=== PATIENT | male | born 1950 | race Caucasian/White ===

== ENCOUNTER 2016-12-26 06:25 | Day surgery (SDC) | payer MEDICARE ==
[2016-12-26] MEDS ORDERED: ceFAZolin 2 GM/50 ML 50 ML IV ONE (06:27)
[2016-12-26] MEDS ORDERED: LACTATED RINGERS 1,000 ML IV ONE ×2 (06:31→08:50)
[2016-12-26] MEDS ORDERED: PROPOFOL 200 MG/20 ML VIAL IVP ONE (08:20)
[2016-12-26] MEDS ORDERED: hydrALAZINE INJ 20 MG/ML VIAL IVP ONE (08:20)
[2016-12-26] MEDS ORDERED: MIDAZOLAM 2 MG/2 ML VIAL IVP ONE (08:20)
[2016-12-26] MEDS ORDERED: GLYCOPYRROLATE 1 MG/5 ML VIAL IVP ONE (08:20)
[2016-12-26] MEDS ORDERED: ePHEDrine 50 MG/ML VIAL IVP ONE (08:20)
[2016-12-26] MEDS ORDERED: LIDOCAINE-MPF 2% 5 ML VIAL IM ONE (08:20)
[2016-12-26] MEDS ORDERED: SUCCINYLCHOLINE 200 MG/10 ML VIAL IVP ONE (08:20)
[2016-12-26] MEDS ORDERED: NEOSTIGMINE 1 MG/1 ML 10 ML MDV IVP ONE (08:20)
[2016-12-26] MEDS ORDERED: fentaNYL 100 MCG/2 ML VIAL IVP ONE (08:20)
[2016-12-26] MEDS ORDERED: ROCURONIUM 50 MG/5 ML VIAL IVP ONE (08:20)
[2016-12-26] MEDS ORDERED: BUPIVACAINE 0.25%-EPI 1:200000 PF 30 ML VIAL SUBQ ONE ×2 (08:51)
[2016-12-26] MEDS ORDERED: LIDOCAINE 1% 50 ML MDV SUBQ ONE ×2 (08:51)
[2016-12-26] MEDS ORDERED: ACETAMINOPHEN 1,000 MG/100 ML 100 ML IV ONE (09:24)
[2016-12-26] MEDS ORDERED: oxyCOD/ACETAMIN 5 MG/325 MG TABLET PO ONE (10:23)
== END 2016-12-26 06:26 | disposition home or self-care (01) ==
PROC: 06BY0ZC Excision of Hemorrhoidal Plexus, Open Approach (ICD-10-PCS; principal; 2016-12-26 07:30)
PROC: 0DBH8ZX Excision of Cecum, Via Natural or Artificial Opening Endoscopic, Diagnostic (ICD-10-PCS; 2016-12-26 07:30)
DX: Z12.11 Encounter for screening for malignant neoplasm of colon (principal); D12.0 Benign neoplasm of cecum; K64.8 Other hemorrhoids; K64.5 Perianal venous thrombosis; G20 Parkinson's disease; K59.09 Other constipation; Z79.01 Long term (current) use of anticoagulants; M19.90 Unspecified osteoarthritis, unspecified site
CPT/HCPCS: 45380; 46260; A9270; J0131; J0690; J7120

== ENCOUNTER 2017-05-30 07:59 | Outpatient (CLI) | payer MEDICARE | END 2017-05-30 08:00 | disposition critical access hospital (66) | LOC: EMS 07:59 | PROVIDERS: ATTEND Surgery | DX: R46.89 Other symptoms and signs involving appearance and behavior (principal) | CPT/HCPCS: A0425; A0429 ==

== ENCOUNTER 2017-05-30 08:11 | Inpatient (IN) | payer MEDICARE ==
--- NOTE | 2017-05-30 08:24 | ED Physician Documentation ---
History of Present Illness - Stated complaint Stated Complaint: TIA - Chief complaint Chief Complaint: General - History obtained from History obtained from: Patient, Family, EMS - History of Present Illness Timing: Today Pain level max: 0 Pain level now: 0 Improved by: nothing Worsened by: nothing - Additonal information Additional information: Patient is a 67-year-old gentleman, with a history of parkinsons, who was at home this morning at the breakfast table with his and he became "suarez, blue around the lips and could not speak". This episode lasted approximately 2- 5 minutes. Resolved spontaneously. Now feels normal. Has a history of factor V Leiden deficiency with pulmonary emboli in the past. Had a similar episode in [place] 1 month ago, but was not seen by a physician at that time. States has been taking his warfarin at home. No headache. No recent illness. Review of Systems Ten Systems: 10 systems reviewed and negative Constitutional: denies: Fever, Chills Eyes: denies: Decreased vision Ears: denies: Ear pain Nose: denies: Rhinorrhea / runny nose, Congestion Throat: denies: Sore throat Cardiac: denies: Chest pain / pressure Respiratory: denies: Cough, Wheezing GI: denies: Nausea, Vomiting, Diarrhea : denies: Dysuria Skin: denies: Rash PD PAST MEDICAL HISTORY - Past Medical History Past Medical History: Yes Cardiovascular: Deep vein thrombosis, Pulmonary embolism Respiratory: None Neuro: Parkinson's Endocrine/Autoimmune: None GI: Chronic constipation, Hemorrhoids : Benign prostate hypertrophy HEENT: Chronic vision loss Psych: None Musculoskeletal: Osteoarthritis, Chronic back pain Derm: None - Past Surgical History Past Surgical History: No General: Colonoscopy Ortho: Spine surgery - Present Medications Home Medications: Ambulatory Orders Medication Instructions Recorded Confirmed Clonazepam 1 mg PO QPM PRN 04/15/13 05/30/17 Warfarin Sodium [Coumadin] 2.5 mg PO DAILY 04/15/13 05/30/17 Carbidopa/Levodopa 25/250 [Sinemet 1 each PO 5XD 10/01/13 05/30/17 25 mg/250 mg] Cyclobenzaprine [Flexeril] 10 mg PO TID PRN #20 tablet 10/01/13 05/30/17 Tamsulosin [Flomax] 0.4 mg PO QPM 10/01/13 05/30/17 Acetaminophen [Tylenol Extra 500 - 1,000 mg PO Q6H PRN 12/26/16 05/30/17 Strength] Calcium Carbonate/Vitamin D3 1 tab PO DAILY 05/30/17 05/30/17 [Calcium 600-Vit D3 400 Tablet] Docusate Sodium 100 mg PO BID 05/30/17 05/30/17 Folic Acid 1 mg PO DAILY 05/30/17 05/30/17 Furosemide 20 mg PO DAILY 05/30/17 05/30/17 Gabapentin 900 mg PO TID 05/30/17 05/30/17 Lactobac No.41/Bifidobact No.7 2 cap PO DAILY 05/30/17 05/30/17 [Probiotic-10 3 Billion Cell Cp] Polyethylene Glycol 3350 [Miralax] 17 gm PO DAILY PRN 05/30/17 05/30/17 Simethicone 180 mg PO DAILY 05/30/17 05/30/17 - Allergies Allergies/Adverse Reactions: Allergies Allergy/AdvReac Type Severity Reaction Status Date / Time No Known Drug Allergies Allergy Verified 10/01/13 10:38 - Social History Does the pt smoke?: No Smoking Status: Never smoker Does the pt drink ETOH?: No Does the pt have substance abuse?: No - Immunizations Immunizations are current?: Yes - POLST Patient has POLST: No PD ED PE NORMAL - Vitals Vital signs reviewed: Yes - General General: Alert and oriented X 3, No acute distress, Well developed/nourished - HEENT HEENT: Atraumatic, PERRL, Moist mucous membranes, Pharynx benign - Neck Neck: Supple, no meningeal sign - Cardiac Cardiac: RRR, Strong equal pulses - Respiratory Respiratory: No respiratory distress, Clear bilaterally - Abdomen Abdomen: Soft, Non tender, Non distended - Derm Derm: Warm and dry - Extremities Extremities: No edema - Neuro Neuro: Alert and oriented X 3, 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, No motor deficit, No sensory deficit, Normal speech, Other (NIHSS 0 at 0820) - Psych Psych: Normal mood, Normal affect Results - Vitals Vitals: Vital Signs - 24 hr 05/30/17 05/30/17 05/30/17 08:15 09:49 10:47 Temperature 35.7 C L 36.5 C Heart Rate 67 67 69 Respiratory 18 18 16 Rate Blood Pressure 162/94 H 154/92 H 162/94 H O2 Saturation 98 95 98 Oxygen O2 Source Room air - EKG (time done) 0827 Rate: Rate (enter#) (66) Rhythm: NSR [place]: Normal Intervals: Normal [place] QRS: Normal Ischemia: Normal ST segments - Labs Labs: Laboratory Tests 05/30/17 05/30/17 05/30/17 08:30 08:30 08:30 WBC 7.8 RBC 4.75 Hgb 14.6 Hct 44.0 MCV 92.8 MCH 30.9 MCHC 33.3 RDW 15.1 H Plt Count 213 MPV 7.0 L Neut # 4.6 Lymph # 2.4 Boyd # 0.7 Eos # 0.1 Baso # 0.0 Absolute Nucleated RBC 0.00 Nucleated RBC % 0.1 PT 30.9 H INR 2.7 H APTT 35.6 H Sodium 141 Potassium 3.7 Chloride 101 Carbon Dioxide 30 Anion Gap 10.0 BUN 19 Creatinine 1.1 Estimated GFR (MDRD) 67 L Glucose 127 H Calcium 9.0 Total Bilirubin 0.8 AST 19 ALT < 10 L Alkaline Phosphatase 83 Troponin I Total Protein 7.3 Albumin 4.3 Globulin 3.0 Albumin/Globulin Ratio 1.4 Lipase 24 05/30/17 08:30 WBC RBC Hgb Hct MCV MCH MCHC RDW Plt Count MPV Neut # Lymph # Boyd # Eos # Baso # Absolute Nucleated RBC Nucleated RBC % PT INR APTT Sodium Potassium Chloride Carbon Dioxide Anion Gap BUN Creatinine Estimated GFR (MDRD) Glucose Calcium Total Bilirubin AST ALT Alkaline Phosphatase Troponin I < 0.04 Total Protein Albumin Globulin Albumin/Globulin Ratio Lipase - Rads (name of study) angio head CT Radiology: Prelim report reviewed, EMP read contemporaneously, See rad report ( No acute intracranial abnormality. Specifically, no evidence of acute infarct, hemorrhage, or mass lesion. CTA: 1. Normal CTA of the head. No significant vascular stenosis or aneurysm. ) neck angio CT Radiology: Prelim report reviewed, EMP read contemporaneously, See rad report ( Carotid and vertebral arteries are patent without significant stenosis, atherosclerotic disease, or dissection. True vocal cords are asymmetric with relaxation on the left. Findings may represent paralysis or weakness. ) brain MRI w/o Radiology: Prelim report reviewed, EMP read contemporaneously, See rad report ( No acute intracranial abnormality. Specifically, no evidence of acute infarct or hemorrhage. 2. Cystic lesion measuring at least 6 mm diameter is present in the posterior pituitary, incompletely evaluated on this exam. Differential diagnosis includes Rathke cleft cyst as well as adenoma. Consider dedicated pituitary MRI for further evaluation in a nonurgent manner. ) PD MEDICAL DECISION MAKING - ED course Complexity details: reviewed results, re-evaluated patient, considered differential, d/w patient, d/w family ED course: Patient is a 67-year-old gentleman who presents to the emergency department with what appears to be a TIA today. No acute findings on CT angiogram head and neck or noncontrast head CT. No acute findings on EKG. No recurrent symptoms in the emergency department. Has not had these symptoms before. I discussed the case with the hospitalist, Dr. Mccauley, who accepts the patient. This document was made in part using voice recognition software. While efforts are made to proofread this document, sound alike and grammatical errors may occur. Departure - Departure Disposition: ED Place in Observation Clinical Impression: TIA (transient ischemic attack) Qualifiers: Transient cerebral ischemia type: unspecified Qualified Code(s): G45.9 - Transient cerebral ischemic attack, unspecified Condition: Stable Discharge Date/Time: 05/30/17 13:36
[2017-05-30 08:44] LABS: BASOPHILS % (AUTO) 0.5 %; EOSINOPHILS # (AUTO) 0.1 10^3/uL (0.0-0.7); EOSINOPHILS % (AUTO) 1.1 %; HGB - HEMOGLOBIN 14.6 g/dL (14.0-18.0); LYMPHOCYTES # (AUTO) 2.4 10^3/uL (1.5-3.5); LYMPHOCYTES % (AUTO) 30.7 %; MEAN CORPUSCULAR HEMOGLOBIN 30.9 pg (27.0-31.0); MEAN CORPUSCULAR HGB CONC 33.3 g/dL (32.0-36.0); MEAN CORPUSCULAR VOLUME 92.8 fL (80.0-94.0); MONOCYTES # (AUTO) 0.7 10^3/uL (0.0-1.0); MONOCYTES % (AUTO) 8.9 %; NEUTROPHILS # (AUTO) 4.6 10^3/uL (1.5-6.6); NEUTROPHILS % (AUTO) 58.8 %; NUCLEATED RED BLOOD CELLS AUTO 0.1 /100WBC; RED BLOOD COUNT 4.75 10^6/uL (4.70-6.10); RED CELL DISTRIBUTION WIDTH 15.1 % (12.0-15.0); UNCORRECTED WHITE BLOOD COUNT 7.8 x10^3/uL; WHITE BLOOD COUNT 7.8 x10^3/uL (4.8-10.8)
[2017-05-30 08:49] LABS: INR 2.7 (0.8-1.2); PT - PROTHROMBIN TIME 30.9 secs (9.9-12.6)
[2017-05-30] MEDS ORDERED: IOPAMIDOL-300 100 ML VIAL ONE (08:49)
[2017-05-30 08:54] LABS: ALBUMIN/GLOBULIN RATIO 1.4 (1.0-2.2); BILIRUBIN,TOTAL 0.8 mg/dL (0.2-1.0); BUN - BLOOD UREA NITROGEN 19 mg/dL (6-20); CARBON DIOXIDE - CO2 30 mmol/L (21-32); CHLORIDE 101 mmol/L (101-111); CREATININE 1.1 mg/dL (0.6-1.2); GFR - MDRD 67 (>89); GLUCOSE 127 mg/dL (70-100); LIPASE 24 U/L (22-51); POTASSIUM 3.7 mmol/L (3.5-5.0); SODIUM 141 mmol/L (135-145); TOTAL PROTEIN 7.3 g/dL (6.7-8.2)
[2017-05-30 08:58] LABS: PARTIAL THROMBOPLASTIN TIME 35.6 secs (24.9-33.3)
[2017-05-30] MEDS ORDERED: IOPAMIDOL-300 100 ML VIAL IVP ONE (09:24)
--- NOTE | 2017-05-30 10:28 | CT Preliminary Report ---
Exam: CT Head Angio IMPRESSION: HEAD: 1. No acute intracranial abnormality. Specifically, no evidence of acute infarct, hemorrhage, or mass lesion. CTA: 1. Normal CTA of the head. No significant vascular stenosis or aneurysm. [facility] SITE ID: [id number]
--- NOTE | 2017-05-30 10:30 | CT Report ---
EXAM: CT ANGIOGRAM HEAD EXAM DATE: 05/30/2017 09:30 AM. CLINICAL HISTORY: 67-year-old man with altered mental status and speech difficulty. COMPARISON: None. TECHNIQUE: 1. Noncontrast Head: Using a multidetector scanner, axial images were acquired from the foramen magnu m to the skull vertex prior to contrast administration. 2. CTA Head: Using a multidetector scanner, high-resolution axial images were acquired from the skull base through vertex following rapid infusion of intravenous contrast. Multiplanar MIP reformats were reconstructed. 3. Post-contrast head CT: 5 mm contiguous axial sections were obtained from the foramen magnum to sesar francisco was following CT angiogram. IV Contrast: 100 cc Isovue-[address] protocol optimization, one or more of the following dose reduction techniques w ere utilized for this exam: automated exposure control, adjustment of mA and/or KV based on patient s ize, or use of iterative reconstructive technique. FINDINGS: NON-CONTRAST HEAD: Parenchyma: No evidence of acute infarct, hemorrhage, or mass lesion. Brain parenchyma demonstrates n ormal appearance. Extra-axial Spaces: Normal. No extra-axial fluid collections or hemorrhage. Ventricles: Ventricles are age appropriate. Cisterns are patent. Orbits and Sinuses: Orbits are normal. Paranasal sinuses and mastoid air cells are clear. Extracranial Soft Tissues and Bones: Extracranial soft tissues are unremarkable. No fractures. Other: None. CT ANGIOGRAM HEAD: RIGHT: Internal Carotid artery: No evidence of dissection. No evidence of aneurysm along the intracranial IC A. Vertebral Artery: Patent without significant stenosis. No evidence of dissection. Anterior Cerebral Artery: Patent without significant stenosis, aneurysm, or vascular malformation. Middle Cerebral Artery: Patent without significant stenosis, aneurysm, or vascular malformation. Posterior Cerebral Artery: Patent without significant stenosis, aneurysm, or vascular malformation. Posterior Communicating Artery: Not well seen. LEFT: Internal Carotid artery: No evidence of dissection. No evidence of aneurysm along the intracranial IC A. Vertebral Artery: Patent without significant stenosis. No evidence of dissection. Anterior Cerebral Artery: Patent without significant stenosis, aneurysm, or vascular malformation. Middle Cerebral Artery: Patent without significant stenosis, aneurysm, or vascular malformation. Posterior Cerebral Artery: Patent without significant stenosis, aneurysm, or vascular malformation. Posterior Communicating Artery: Not well seen. CENTRAL: Anterior Communicating Artery: Patent. No aneurysm. Basilar Artery: Patent without significant stenosis. No aneurysm. POST-CONTRAST HEAD: No abnormal enhancement. IMPRESSION: HEAD: 1. No acute intracranial abnormality. Specifically, no evidence of acute infarct, hemorrhage, or mass lesion. CTA: 1. Normal CTA of the head. No significant vascular stenosis or aneurysm. [facility] Referring Provider Line: [phone] SITE ID: [id number]
--- NOTE | 2017-05-30 10:36 | CT Preliminary Report ---
Exam: CT Neck Angio IMPRESSION: 1. Carotid and vertebral arteries are patent without significant stenosis, atherosclerotic disease, o r dissection. 2. True vocal cords are asymmetric with relaxation on the left. Findings may represent paralysis or w eakness. [facility] SITE ID: [id number]
--- NOTE | 2017-05-30 10:38 | CT Report ---
EXAM: CT ANGIOGRAM NECK EXAM DATE: 05/30/2017 09:30 AM. CLINICAL HISTORY: 37-year-old man with altered mental status and speech difficulty. COMPARISON: None. TECHNIQUE: Routine axial helical imaging was performed from the skull base through the aortic arch. I V Contrast: 100 cc Isovue-300. Reconstructions: Routine multiplanar 3D MIP reconstructions. Evaluatio n of arterial stenosis is based on a NASCET method of measurement. In accordance with CT protocol optimization, one or more of the following dose reduction techniques w ere utilized for this exam: automated exposure control, adjustment of mA and/or KV based on patient s ize, or use of iterative reconstructive technique. FINDINGS: Right Carotid: The common carotid, internal carotid, and external carotid arteries are widely patent. No dissection, significant atherosclerotic plaque, or calcification identified. Left Carotid: The common carotid, internal carotid, and external carotid arteries are widely patent. No dissection, significant atherosclerotic plaque, or calcification identified. Right Vertebral: Patent without significant stenosis, atherosclerotic plaque, or dissection. Left Vertebral: Patent without significant stenosis, atherosclerotic plaque, or dissection. Other: There is asymmetry of the true vocal cords with relaxation on the left, possibly representing paralysis or weakness. Visualized soft tissues of the neck are otherwise unremarkable. IMPRESSION: 1. Carotid and vertebral arteries are patent without significant stenosis, atherosclerotic disease, o r dissection. 2. True vocal cords are asymmetric with relaxation on the left. Findings may represent paralysis or w eakness. [facility] Referring Provider Line: [phone] SITE ID: [id number]
[2017-05-30] MEDS ORDERED: ACETAMINOPHEN 325 MG TABLET PO STA (10:48)
[2017-05-30] MEDS ORDERED: ACETAMINOPHEN 325 MG TABLET PO ONE (10:54)
--- NOTE | 2017-05-30 12:49 | MRI Preliminary Report ---
Exam: MRI Brain W/O IMPRESSION: 1. No acute intracranial abnormality. Specifically, no evidence of acute infarct or hemorrhage. 2. Cystic lesion measuring at least 6 mm diameter is present in the posterior pituitary, incompletely evaluated on this exam. Differential diagnosis includes Rathke cleft cyst as well as adenoma. Consid er dedicated pituitary MRI for further evaluation in a nonurgent manner. SITE ID: [id number]
--- NOTE | 2017-05-30 12:52 | MRI Report ---
EXAM: MRI BRAIN WITHOUT CONTRAST EXAM DATE: 05/30/2017 12:32 PM. CLINICAL HISTORY: CT 7-year-old man with altered mental status and speech difficulties. COMPARISON: CTA done earlier today. TECHNIQUE: Multiplanar, multisequence T1-weighted and fluid-sensitive MR sequences of the brain were performed. Sequences optimized for routine evaluation. Other: None. IV Contrast: None. FINDINGS: Parenchyma: No evidence of acute infarct on diffusion weighted sequence. The parenchyma is normal jason earance except for minimal nonspecific FLAIR hyperintensity in the periventricular white matter, less than commonly seen in this age group. No evidence of prior hemorrhage on susceptibility weighted seq uence. Pituitary: Cystic lesion is present in the posterior pituitary, measuring approximately 6 mm AP. No s uprasellar extension. The remainder of the pituitary and stalk are displaced anteriorly. Ventricles and Extra-axial Spaces: Ventricles are symmetric and normal in size for age. Extra-axial s paces are unremarkable. Orbits: Unremarkable. Sinuses: Paranasal sinuses and mastoid air cells are clear. Major Vascular Flow Voids: Intact. IMPRESSION: 1. No acute intracranial abnormality. Specifically, no evidence of acute infarct or hemorrhage. 2. Cystic lesion measuring at least 6 mm diameter is present in the posterior pituitary, incompletely evaluated on this exam. Differential diagnosis includes Rathke cleft cyst as well as adenoma. Consid er dedicated pituitary MRI for further evaluation in a nonurgent manner. Referring Provider Line: [phone] SITE ID: [id number]
[2017-05-30] MEDS ORDERED: SODIUM CHLORIDE FLUSH 0.9% 10 ML SYRINGE IVP PRN (13:09)
[2017-05-30] MEDS: SODIUM CHLORIDE FLUSH 0.9% 10 ML SYRINGE IVP SCH ×2 (14:50→21:01)
[2017-05-30] MEDS: CARBIDOPA/LEVODOPA 25 MG/250 MG TABLET PO SCH ×2 (16:14→20:05)
[2017-05-30] MEDS ORDERED: clonazePAM 0.5 MG TABLET PO PRN (17:35)
[2017-05-30] MEDS: CHOLECALCIFEROL 400 UNIT TABLET PO SCH (19:27)
[2017-05-30] MEDS: FOLIC ACID 1 MG TABLET PO SCH (19:27)
--- NOTE | 2017-05-30 19:37 | XRAY Preliminary Report ---
Exam: XR Ribs w/PA Chest RT IMPRESSION: 1. Nondisplaced right seventh and eighth rib fractures which could be acute or old. 2. No pneumothorax. 3. Trace right pleural effusion versus right basilar atelectasis. [facility] SITE ID: [id number]
--- NOTE | 2017-05-30 19:39 | XRAY Report ---
EXAM: RIGHT RIB RADIOGRAPHY EXAM DATE: 05/30/2017 07:02 PM. CLINICAL HISTORY: S/P fall, R lateral rib pain. COMPARISON: None. TECHNIQUE: 1 view of the chest and 4 views of the ribs. FINDINGS: Bones: There is a cortical irregularity of the anterior right seventh and eighth ribs. Lungs: There is blunting of the lateral right costophrenic angle consistent with trace pleural effusi on or atelectasis. No pneumothorax. Mediastinum: Heart size is normal. Other: None. IMPRESSION: 1. Nondisplaced right seventh and eighth rib fractures which could be acute or old. 2. No pneumothorax. 3. Trace right pleural effusion versus right basilar atelectasis. [facility] Referring Provider Line: [phone] SITE ID: [id number]
[2017-05-30] MEDS ORDERED: DOCUSATE SODIUM 250 MG CAPSULE PO SCH (21:00)
[2017-05-30] MEDS ORDERED: clonazePAM 0.5 MG TABLET PO SCH (21:00)
[2017-05-30] MEDS: TAMSULOSIN 0.4 MG CAPSULE PO SCH (21:01)
[2017-05-30] MEDS: DOCUSATE SODIUM 100 MG CAPSULE PO SCH (21:01)
[2017-05-30] MEDS: GABAPENTIN 400 MG CAPSULE PO SCH (21:01)
--- NOTE | 2017-05-31 00:53 | HISTORY & PHYSICAL EXAMINATION ---
DATE OF ADMISSION: 05/30/2017 HISTORY OF PRESENT ILLNESS: This is a 67-year-old white male with a history of Parkinson disease diagnosed approximately 12 years ago, spinal stenosis for which he has undergone a lengthy procedure with rods to the spine in 7 different vertebral locations. He has probable fibromyalgia with pelvic pain mostly. He has Factor V Leiden abnormality and history of pulmonary embolism, on chronic Coumadin. The patient presents with an episode of altered mental status versus syncope which occurred while he was sitting at his table and his called to him and she noticed that his eyes were rolling back, that he looked ashen, and that his lips were turning blue. She was unable to arouse him. He was not rigid and was slumped in his chair, but did not fall out of the chair. He started to awaken, but he could not recognize her and had garbled speech. She was able to call 911 and followed their directions to have him try to smile and raise both arms, which he did symmetrically. He did not remember even doing this after the event. He slowly improved as the ambulance arrived. He remembered at this point the events of the ambulance picking him up and bringing him into the emergency room, where he was also stable. There was no loss of bladder or bowel control. He denied any shortness of breath or chest pain. He did later state that there was preceding marked dizziness, but he did not have time to tell his this. A similar event happened approximately 2 months ago, when he was visiting his daughter's house in [place], when he stood up from his chair and then the daughter described that he suddenly froze in place and had a stare and did not answer to her calling his name. She helped him down into a chair where he was slumped, and then he started to have marked shaking of arms and legs, and she "held him in a bear hug until it stopped." He then slowly awakened and did not remember the events. He did not seek medical attention and was not seen in an emergency room after that event. REVIEW OF SYSTEMS: Another daughter and the report that he has episodes where he has sudden memory loss when he is standing (he did not recognize his daughter when she was on the patio and he was walking out from the house and saw her on the patio). He eventually "came out of this" and was able to recognize everyone and carry on normal activity. The patient himself reports that very frequently while sitting in a yazidism pew, when he stands up he gets extremely dizzy and needs to sit down immediately. There has never been full syncope. He denies any chest pain, shortness of breath, palpitations with any of these events. He does describe leg edema, which has been longstanding, for which no etiology was ever told to him and he is on Lasix daily for this. He has constipation and hard, dry stools. He gets bleeding of hemorrhoids when he wipes. Four days ago he suffered [place] He stumbled over a clump of dirt and fell on his right chest area, with his right arm bent inward, protecting his chest. There was apparently no head injury and he did not lose consciousness. This was witnessed by a daughter. He did not go to the ER. Since then, he has had marked right lateral ribcage area pain and tenderness, no pleuritic pain. The rest of the ROS is negative. FAMILY HISTORY: Both parents are , and there is no cardiac history. SOCIAL HISTORY: He never smoked, drinks rare alcohol. 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 He no longer drives because of his Parkinson's. MEDICATIONS AT HOME 1. Gabapentin 900 mg bid 2. Klonopin 1 mg qhs 3. Levodopa/carbidopa tid 4. Lasix 20 mg daily. 5. Flomax 0.4 mg daily (usually in am) 6. Flexeril (for back spasm) 10 mg tid 7. Warffain 2.5 mg daily. 8. simethicone 180 mg daily 9. colace 100 mg bid. 10. Miralax 17 mg po daily 11. Probiotic capsule. 12. Calcium Carbonate w/ vitamin D3. 13. Tylenol extra strength prn 14. Folate 1 mg daily ALLERGIES: NONE. PHYSICAL EXAMINATION GENERAL: Reveals a white male who is in no acute distress. He is alert and oriented x3. VITAL SIGNS: Blood pressure in the sitting position is 127/70, heart rate is in the 60s in sinus rhythm. HEENT: He has rubor of his cheeks R>L. He has injected sclerae bilaterally NECK: Shows no JVD in a vertical position. No carotid bruits. No thromegaly. CHEST: Clear. HEART: Normal. No audible murmurs. ABDOMEN: Soft, nontender. No organomegaly. EXTREMITIES: No clubbing, cyanosis, or edema. NEUROLOGIC: He is grossly intact with no focal findings. There is no tremor of Parkinson's. His affect is not flat. LABORATORY: Normal BMP and CBC. INR 2.7. No chest x-ray was done. CT of the head showed no evidence of acute stroke or hemorrhage. CTA of the head and neck showed no evidence of severe atherosclerosis or intravascular clot. EKG: Normal sinus rhythm with poor R wave progression. IMPRESSION 1. Altered mental status, suggesting possible syncope versus seizures versus transient ischemic attack. 2. Parkinson disease, which developed an early age. 3. Fibromyalgia history. 4. Prior "absence spells" versus memory loss, which is episodic. 5. Factor V Leiden deficiency with prior pulmonary embolism, on chronic Coumadin. 6. Back pain and prior extensive spinal surgery 7. Recent fall on R side of body with rib pain. Possible rib fracture. 8. Orthostatic symptoms (in yazidism). PLAN: Admit the patient to telemetry to rule out atrial fibrillation as a cause for these events. Cycle cardiac enzymes to rule out an SD. Obtain an MRI of the brain to rule out ischemia. Obtain an echo to rule out a cardiac source of embolism. Obtain orthostatic vital signs to rule out autonomic dysfunction in Parkinson's as the cause of what could be repeated episodes of syncope and near syncope. Obtain an EEG to rule out seizure activity as the cause of these events. Consider discontinuation of the Lasix and use of support stockings and either midodrine or Florinef or Northera if orthostasis is the etiology of the above events. Continue with his Coumadin, unless it is determined that his fall risk is excessive. JOB #: [id number] EXT JOB #:[id number] VALERY
[2017-05-31] MEDS: CARBIDOPA/LEVODOPA 25 MG/250 MG TABLET PO SCH ×5 (03:13→20:24)
[2017-05-31] MEDS: SODIUM CHLORIDE FLUSH 0.9% 10 ML SYRINGE IVP SCH ×3 (06:20→21:08)
[2017-05-31] MEDS: GABAPENTIN 400 MG CAPSULE PO SCH ×3 (06:20→21:08)
[2017-05-31 07:02] LABS: POTASSIUM 4.2 mmol/L (3.5-5.0)
[2017-05-31] MEDS: ACETAMINOPHEN 500 MG TABLET PO SCH (08:48)
[2017-05-31] MEDS: CHOLECALCIFEROL 400 UNIT TABLET PO SCH (08:49)
[2017-05-31] MEDS: WARFARIN 2.5 MG TABLET PO SCH (08:49)
[2017-05-31] MEDS: FAMOTIDINE 20 MG TABLET PO SCH (08:49)
[2017-05-31] MEDS: DOCUSATE SODIUM 100 MG CAPSULE PO SCH ×3 (08:49→21:08)
[2017-05-31] MEDS: FOLIC ACID 1 MG TABLET PO SCH (08:49)
[2017-05-31] MEDS: SIMETHICONE 180 MG PO SCH (08:50)
[2017-05-31] MEDS: PROBIOTIC PO SCH (08:50)
[2017-05-31] MEDS: POLYETHYLENE GLYCOL 3350 17 GM PACKET PO SCH (08:50)
[2017-05-31] MEDS ORDERED: DOCUSATE SODIUM 250 MG CAPSULE PO SCH (09:00)
[2017-05-31] MEDS ORDERED: POLYETHYLENE GLYCOL 3350 17 GM PACKET PO SCH (09:00)
[2017-05-31] MEDS ORDERED: VIT BCOMP C PO SCH (09:00)
[2017-05-31] MEDS ORDERED: FOLIC ACID PO SCH (09:00)
[2017-05-31] MEDS ORDERED: MIDODRINE 2.5 MG TAB PO SCH (12:00)
[2017-05-31] MEDS: CYCLOBENZAPRINE 10 MG TABLET PO PRN ×2 (12:46→21:08)
[2017-05-31] MEDS: MIDODRINE 10 MG TAB PO SCH (17:09)
--- NOTE | 2017-05-31 18:01 | PROVIDER PROGRESS NOTE ---
Assessment/Plan - Problem List (1) Syncope due to orthostatic hypotension Assessment/Plan: Yesterday the first set of VS showed: supine BP 125/87, HR 78 sitting BP 119/81, HR 79 standing BP 81/61, HR 87 This am pt had support stockings and drop in systolic BP was 35 mmHg This afternoon, after first Midodrine 2.5 mg dose, sBP dropped 20 mmHg I spent over 30 min in room with Pt and and 2 daughters explaining the management and meds for Orthostatic Hypotension (2) Rib fracture Qualifiers: Rib fracture type: multiple ribs Laterality: right Assessment/Plan: Stable with current pain meds and has incentive spirometry (3) Parkinsons disease Assessment/Plan: Stable on his pre-admission Parkinsons meds - Current Meds Current Meds: Current Medications Generic Name Dose Route Start Last Admin Trade Name Freq PRN Reason Stop Dose Admin Acetaminophen 500 mg 05/31/17 09:00 05/31/17 08:48 Tylenol PO 500 mg DAILY TIMBO Administration Carbidopa/Levodopa 1 tab 05/30/17 16:00 05/31/17 16:33 Sinemet 25 Mg/250 Mg PO 1 tab 1200,1600,2000 TIMBO Administration Carbidopa/Levodopa 1 tab 05/31/17 04:00 05/31/17 08:49 Sinemet 25 Mg/250 Mg PO 1 tab 0400,0800 TIMBO Administration Cholecalciferol 400 unit 05/30/17 18:00 05/31/17 08:49 Vitamin D3 PO 400 unit DAILY TIMBO Administration Cyclobenzaprine HCl 10 mg 05/30/17 13:14 05/31/17 12:46 Flexeril PO 10 mg TID PRN Administration Spasms Docusate Sodium 100 mg 05/30/17 21:00 05/31/17 08:56 Colace 100mg Capsule PO Not Given BID TIMBO Famotidine 20 mg 05/31/17 09:00 05/31/17 08:49 Pepcid PO 20 mg DAILY TIMBO Administration Folic Acid 1 mg 05/30/17 18:00 05/31/17 08:49 PO 1 mg DAILY TIMBO Administration Gabapentin 400 mg 05/30/17 22:00 05/31/17 14:19 Neurontin PO 400 mg TID TIMBO Administration Midodrine 10 Mg Tab 0.25 each 05/31/17 12:31 05/31/17 17:09 PO 0.25 each TIDWM TIMBO Administration Probiotic-10 Otc 2 each 05/31/17 09:00 05/31/17 08:50 Supplement Capsule PO 2 each DAILY TIMBO Administration Simethicone 180 Mg 1 each 05/31/17 09:00 05/31/17 08:50 Capsule PO 1 each DAILY TIMBO Administration Polyethylene Glycol 17 gm 05/31/17 09:00 05/31/17 08:50 Miralax PO Not Given DAILY TIMBO Sodium Chloride 10 ml 05/30/17 14:00 05/31/17 14:19 Normal Saline Flush 0.9% IVP 10 ml Q8HR TIMBO Administration Tamsulosin HCl 0.4 mg 05/30/17 21:00 05/30/17 21:01 Flomax PO 0.4 mg QPM TIMBO Administration Warfarin Sodium 2.5 mg 05/31/17 09:00 05/31/17 08:49 Coumadin PO 2.5 mg DAILY TIMBO Administration - Lab Result Fish Bone Diagrams: 05/30/17 08:30 05/31/17 06:33 - Additional Planning My Orders: My Active Orders 05/30/17 17:35 clonazePAM [KlonoPIN] 1 mg PO QPM PRN 05/30/17 17:39 LYUDMILA Halie [RC] QSHIFT 05/30/17 18:00 Cholecalciferol [Vitamin D3] 400 unit PO DAILY Folic Acid 1 mg PO DAILY 05/30/17 21:00 Docusate Sodium 100Mg Capsule [Colace 100Mg Capsule] 100 mg PO BID Tamsulosin [Flomax] 0.4 mg PO QPM 05/30/17 22:00 Gabapentin [Neurontin] 400 mg PO TID 05/31/17 04:00 Carbidopa/Levodopa 25/250 [Sinemet 25 mg/250 mg] 1 tab PO 0400,0800 05/31/17 09:00 Acetaminophen [Tylenol] 500 mg PO DAILY Patient Own Med [Patient Own Medication] 1 each PO DAILY Patient Own Med [Patient Own Medication] 2 each PO DAILY Warfarin [Coumadin] 2.5 mg PO DAILY 05/31/17 12:31 Non Formulary 0.25 each PO TIDWM Subjective - Subjective Patient Reports: Feeling Better, Other (Wearing support stockings and no ankle edema) Objective Vital Signs: Vital Signs - 24 hr 09/05/31/17 05/31/17 19:33 00:02 03:54 Temperature 36.5 C 36.5 C 36.7 C Heart Rate [ 60 Brachial] Heart Rate [ 69 66 Radial] Respiratory 20 16 Rate Blood Pressure 139/82 H 122/85 H [Left Brachial artery] O2 Saturation 96 96 96 05/31/17 05/31/17 05/31/17 09:53 10:48 10:51 Temperature 36.9 C Heart Rate [ 74 72 80 Brachial] Heart Rate [ Radial] Respiratory 17 17 18 Rate Blood Pressure 146/96 H 138/80 H 105/70 [Left Brachial artery] O2 Saturation 97 95 100 05/31/17 05/31/17 05/31/17 15:06 15:38 17:46 Temperature 36.8 C Heart Rate [ 75 Brachial] Heart Rate [ Radial] Respiratory 16 Rate Blood Pressure 138/80 H 123/84 H 115/74 [Left Brachial artery] O2 Saturation 96 Oxygen O2 Source Room air I&O (Last 24 Hrs): Intake and Output Totals x24h 05/29/17 05/30/17 05/31/17 23:59 23:59 23:59 Intake Total 200 1040 Balance 200 1040 General: Alert HEENT: Mucous membr. moist/pink Neck: Supple Neuro: Alert Cardiovascular: Regular rate, No murmurs Respiratory: No respiratory distress Abdomen: Soft Extremities: No edema - Results Results: Laboratory Results WBC 7.8 x10^3/uL (4.8-10.8) 05/30/17 08:30 RBC 4.75 10^6/uL (4.70-6.10) 05/30/17 08:30 Hgb 14.6 g/dL (14.0-18.0) 05/30/17 08:30 Hct 44.0 % (42.0-52.0) 05/30/17 08:30 MCV 92.8 fL (80.0-94.0) 05/30/17 08:30 MCH 30.9 pg (27.0-31.0) 05/30/17 08:30 MCHC 33.3 g/dL (32.0-36.0) 05/30/17 08:30 RDW 15.1 % (12.0-15.0) H 05/30/17 08:30 Plt Count 213 10^3/uL (130-450) 05/30/17 08:30 MPV 7.0 fL (7.4-11.4) L 05/30/17 08:30 Neut # 4.6 10^3/uL (1.5-6.6) 05/30/17 08:30 Lymph # 2.4 10^3/uL (1.5-3.5) 05/30/17 08:30 [place] # 0.7 10^3/uL (0.0-1.0) 05/30/17 08:30 Eos # 0.1 10^3/uL (0.0-0.7) 05/30/17 08:30 Baso # 0.0 10^3/uL (0.0-0.1) 05/30/17 08:30 Absolute Nucleated RBC 0.00 x10^3/uL 05/30/17 08:30 Nucleated RBC % 0.1 /100WBC 05/30/17 08:30 PT 30.9 secs (9.9-12.6) H 05/30/17 08:30 INR 2.7 (0.8-1.2) H 05/30/17 08:30 APTT 35.6 secs (24.9-33.3) H 05/30/17 08:30 Sodium 139 mmol/L (135-145) 05/31/17 06:33 Potassium 4.2 mmol/L (3.5-5.0) 05/31/17 06:33 Chloride 102 mmol/L (101-111) 05/31/17 06:33 Carbon Dioxide 28 mmol/L (21-32) 05/31/17 06:33 Anion Gap 9.0 (6-13) 05/31/17 06:33 BUN 20 mg/dL (6-20) 05/31/17 06:33 Creatinine 1.0 mg/dL (0.6-1.2) 05/31/17 06:33 Estimated GFR (MDRD) 75 (>89) L 05/31/17 06:33 Glucose 95 mg/dL (70-100) 05/31/17 06:33 Calcium 9.0 mg/dL (8.5-10.3) 05/31/17 06:33 Total Bilirubin 0.8 mg/dL (0.2-1.0) 05/30/17 08:30 AST 19 IU/L (10-42) 05/30/17 08:30 ALT < 10 IU/L (10-60) L 05/30/17 08:30 Alkaline Phosphatase 83 IU/L (42-121) 05/30/17 08:30 Troponin I < 0.04 ng/mL (<0.49) 05/30/17 15:12 Total Protein 7.3 g/dL (6.7-8.2) 05/30/17 08:30 Albumin 4.3 g/dL (3.2-5.5) 05/30/17 08:30 Globulin 3.0 g/dL (2.1-4.2) 05/30/17 08:30 Albumin/Globulin Ratio 1.4 (1.0-2.2) 05/30/17 08:30 Lipase 24 U/L (22-51) 05/30/17 08:30 - Procedures Procedures: Procedures EXCISION OF ASCENDING COLON, ENDO, DIAGN (08/07/16) EXCISION OF CECUM, ENDO, DIAGN (12/26/16) EXCISION OF HEMORRHOIDAL PLEXUS, OPEN APPROACH (12/26/16)
[2017-05-31] MEDS: TAMSULOSIN 0.4 MG CAPSULE PO SCH (21:08)
[2017-05-31] MEDS ORDERED: IBUPROFEN 600 MG TABLET PO PRN (22:31)
[2017-06-01] MEDS ORDERED: IBUPROFEN 600 MG TABLET PO SCH
[2017-06-01] MEDS: CARBIDOPA/LEVODOPA 25 MG/250 MG TABLET PO SCH ×4 (04:41→16:15)
[2017-06-01] MEDS: CYCLOBENZAPRINE 10 MG TABLET PO PRN (04:44)
[2017-06-01] MEDS: GABAPENTIN 400 MG CAPSULE PO SCH ×2 (06:12→14:57)
[2017-06-01] MEDS: SODIUM CHLORIDE FLUSH 0.9% 10 ML SYRINGE IVP SCH ×2 (06:13→14:57)
[2017-06-01] MEDS: MIDODRINE 10 MG TAB PO SCH ×3 (08:37→17:32)
[2017-06-01] MEDS: CHOLECALCIFEROL 400 UNIT TABLET PO SCH (08:38)
[2017-06-01] MEDS: ACETAMINOPHEN 500 MG TABLET PO SCH (08:38)
[2017-06-01] MEDS: DOCUSATE SODIUM 100 MG CAPSULE PO SCH (08:39)
[2017-06-01] MEDS: FOLIC ACID 1 MG TABLET PO SCH (08:39)
[2017-06-01] MEDS: FAMOTIDINE 20 MG TABLET PO SCH (08:39)
[2017-06-01] MEDS: WARFARIN 2.5 MG TABLET PO SCH (08:39)
[2017-06-01] MEDS: SIMETHICONE 180 MG PO SCH (08:40)
[2017-06-01] MEDS: PROBIOTIC PO SCH (08:40)
[2017-06-01] MEDS: POLYETHYLENE GLYCOL 3350 17 GM PACKET PO SCH (08:40)
--- NOTE | 2017-06-01 16:47 | Discharge Plan ---
Discharge Plan Disposition: Home, Self Care Condition: Fair Prescriptions: Gabapentin [Neurontin] 600 mg PO BID #60 capsule Diet: Regular Activity Restrictions: No Restrictions Shower Restrictions: No Driving Restrictions: No Weight Bearing: Full Weight Instruction Topics: ED Hypotension Orthostatic Additional Instructions or Follow Up instructions: Follow up with your Primary Care provider and a Neurologist No Smoking: If you smoke, Please STOP! Call for help. Follow-up with: Umer Ureña MD [Primary Care Provider] -
[2017-06-01 17:37] VITALS: BP 134/89
--- NOTE | 2017-06-07 20:03 | DISCHARGE SUMMARY ---
DATE OF ADMISSION: 05/30/2017 DATE OF DISCHARGE: 06/01/2017 HISTORY OF PRESENT ILLNESS: This is a 67-year-old white male with a history of Parkinson disease and factor V Leiden abnormality, for which he is on Coumadin. He has already had a history of a pulmonary embolism. The patient has chronic back pain after an extensive spinal surgery for spinal stenosis, with rods in multiple locations. He has a history of fibromyalgia causing chronic pain. The patient presented after an episode of unresponsiveness while sitting at the table. His reported that he looked ashen, his eyes rolled back, and he was slumped in his chair, but did not lose tone and fall out of the chair completely. He did not respond to her calling out. He stated that he only remembers feeling dizzy before this event while sitting. Then, he remembers seeing her face in front of his and then when he called 911. He was asked to certain tasks such as smiling and raising his arms, which he was able to do, and he started to awaken. An ambulance was called then to bring him to the emergency room for possible syncope versus transient ischemic attack versus absence spell seizure. HOSPITAL COURSE AND DISCHARGE DIAGNOSES 1. Syncope/unresponsiveness due to marked orthostatic hypotension: The patient had been taking Lasix for leg edema of unknown etiology and had evidence of autonomic dysfunction from his longstanding Parkinson's. His orthostatic vital signs done while in the hospital showed a drop of systolic pressure of 50 mmHg maximum. The patient's Lasix was discontinued. He received gentle saline rehydration. He was ordered to get LYUDMILA stockings for venous compression and recommended to have Jobst stockings, knee high, as an outpatient. He was also started on midodrine 2.5 mg p.o. t.i.d. with breakfast, lunch, and dinner to help with orthostasis. The patient tolerated these changes of medications and felt more energy. He had no lightheadedness with standing, and was able to ambulate in the hallway. He was discharged with new midodrine, new support stockings, and discontinuation of Lasix. His pain medications were also adjusted slightly in order to decrease the side effects of lowering his blood pressure and causing some sedation. The patient was advised to have a Neurologist for further management of his autonomic dysfunction causing orthostasis from his Parkinson disease. The patient's diet can contain added salt. The patient was advised that during hot weather when he may sweat more, the symptoms of dizziness from an upright posture may be more troublesome. Adequate hydration with electrolyte- containing fluids such as Gatorade was advised. The patient, the , and I had extensive discussions about his overall diet for this condition. 2. Parkinson disease: The patient was kept on his carbidopa/levodopa at the same dose during this entire admission. On this medication, he did not show evidence of tremors, parkinsonian facies, or a flat affect. A Neurology outpatient physician is advised. 3. Factor V Leiden abnormality with a history of pulmonary embolism in the past , he is maintained on Coumadin. The patient was kept on his current Coumadin dose throughout this admission. INR was checked at admission and was therapeutic at 2.7. 4. Rib fracture: The patient reports having fallen four days prior to this admission while he [place], tripping in the path and falling on his right chest area. He developed rib cage area pleuritic chest pain, which he also complained of at admission. He underwent rib series x-rays , which showed fracture of two ribs. His pain medications, which he was taking for his fibromyalgia, were controlling the rib pain. He received additional individual doses of Dilaudid while here. There were no changes in medications at discharge for this. 5. Leg edema: The patient states he has never been told why he has leg edema. During this admission, there was no evidence of this. His Lasix was discontinued, and venous compression stockings were ordered, which will also help prevent leg edema. 6. Low back pain: There were unchanged symptoms related to his prior extensive spinal surgery and fibromyalgia, and no changes in his overall management for pain. 7. Fibromyalgia: Continued management with his current combination was continued. He, the , and I discussed possible changes in diet to help decrease inflammation in a patient with fibromyalgia. CONDITION AT DISCHARGE: Fair. MEDICATIONS AT DISCHARGE 1. Tylenol p.r.n. pain. 2. Calcium carbonate with a multivitamin 1 p.o. daily. 3. Carbidopa/levodopa 25/250 one tablet 5 times a day. 4. Clonazepam 1 mg p.o. every evening p.r.n. insomnia and leg pain. 5. Flexeril 10 mg p.o. t.i.d. 6. Colace 100 mg p.o. b.i.d. 7. Folic acid 1 mg p.o. daily. 8. Neurontin 400 mg capsules 1-1/2 tablets p.o. b.i.d. (This was decreased from 900 mg p.o. b.i.d.) 9. Lactobacillus #41, with a 70 mg capsule p.o. daily. 10. Midodrine 2.5 mg p.o. t.i.d. with meals. 11. MiraLax 17 gram packet p.o. daily. 12. Simethicone 180 mg capsule p.o. daily. 13. Flomax 0.4 mg p.o. in the evening. 14. Warfarin 2.5 mg p.o. daily. FOLLOWUP: He was advised to see his Primary Care Doctor and to have a referral to a Neurologist for long-term followup and further management. Time to complete Discharge: greater than 30 min. JOB #: [id number] [facility] JOB #:[id number] MTDRadha
== END 2017-06-01 17:45 | disposition home or self-care (01) | DRG 312 ==
LOC: EDUNIT# → ED 08:11 → MS3 13:09
PROVIDERS: ADMIT Internal Medicine; ATTEND Internal Medicine
DX: G45.9 Transient cerebral ischemic attack, unspecified (principal); I95.1 Orthostatic hypotension; D68.51 Activated protein C resistance; S22.41XA Multiple fractures of ribs, right side, initial encounter for closed fracture; G20 Parkinson's disease; Z79.01 Long term (current) use of anticoagulants; N40.0 Benign prostatic hyperplasia without lower urinary tract symptoms; Z86.711 Personal history of pulmonary embolism; M19.90 Unspecified osteoarthritis, unspecified site; G89.29 Other chronic pain; M54.9 Dorsalgia, unspecified; M79.7 Fibromyalgia; H54.7 Unspecified visual loss; K59.00 Constipation, unspecified; K64.8 Other hemorrhoids; Z79.899 Other long term (current) drug therapy; W01.0XXA Fall on same level from slipping, tripping and stumbling without subsequent striking against object, initial encounter; Y93.01 Activity, walking, marching and hiking; Y92.828 Other wilderness area as the place of occurrence of the external cause; Y99.8 Other external cause status
CPT/HCPCS: 36415; 70496; 70498; 70551; 80048; 80053; 83690; 84484; 85025; 85610; 85730; 93005; 93306; 99284; 99285

== ENCOUNTER 2017-10-26 13:55 | Outpatient (CLI) | payer MEDICARE ==
--- NOTE | 2017-10-26 15:51 | XRAY Report ---
LUMBAR SPINE: 10/26/2017 CLINICAL INDICATION: Back pain, history of fusion. COMPARISON: CT abdomen and pelvis 02/14/2016. FINDINGS: Frontal, lateral, bilateral oblique views of the lumbar spine demonstrate posterior zandra and pedicle screw fusion spanning L1 through the sacrum on the right and the lower thoracic spine through the sacrum on the left. The left posterior zandra demonstrates a new discontinuity at the L1-2 level, compatible with hardware complication. No definite new compression fracture is seen. IMPRESSION: NEW DISCONTINUITY IN THE LEFT POSTERIOR ZANDRA FROM PREVIOUS CT OF 02/14/2016, COMPATIBLE WITH HARDWARE COMPLICATION. NO EVIDENCE OF INTERVAL COMPRESSION FRACTURE. STABLE DEGENERATIVE CHANGES. TD: 10/26/2017 15:49
== END 2017-10-26 13:56 | disposition home or self-care (01) ==
LOC: DI 13:55
PROVIDERS: ATTEND Family Medicine
DX: T84.098A Other mechanical complication of other internal joint prosthesis, initial encounter (principal); M47.896 Other spondylosis, lumbar region
CPT/HCPCS: 72110

== ENCOUNTER 2018-03-30 17:31 | Emergency (ER) | payer MEDICARE ==
[2018-03-30 18:19] LABS: BASOPHILS % (AUTO) 0.4 %; EOSINOPHILS % (AUTO) 0.4 %; HGB - HEMOGLOBIN 15.2 g/dL (14.0-18.0); LYMPHOCYTES # (AUTO) 0.9 10^3/uL (1.5-3.5); LYMPHOCYTES % (AUTO) 10.1 %; MEAN CORPUSCULAR HEMOGLOBIN 31.5 pg (27.0-31.0); MEAN CORPUSCULAR HGB CONC 33.1 g/dL (32.0-36.0); MEAN CORPUSCULAR VOLUME 94.9 fL (80.0-94.0); MEAN PLATELET VOLUME 7.5 fL (7.4-11.4); MONOCYTES # (AUTO) 0.6 10^3/uL (0.0-1.0); MONOCYTES % (AUTO) 7.1 %; NEUTROPHILS # (AUTO) 7.4 10^3/uL (1.5-6.6); PLT - PLATELET COUNT 239 10^3/uL (130-450); RED BLOOD COUNT 4.83 10^6/uL (4.70-6.10)
[2018-03-30 18:31] LABS: ALBUMIN/GLOBULIN RATIO 1.2 (1.0-2.2); BILIRUBIN,TOTAL 0.8 mg/dL (0.2-1.0); CALCIUM 9.8 mg/dL (8.5-10.3); CREATININE 1.6 mg/dL (0.6-1.2); TOTAL PROTEIN 7.3 g/dL (6.7-8.2)
[2018-03-30 18:36] LABS: INR 1.2 (0.8-1.2); PT - PROTHROMBIN TIME 13.5 secs (9.9-12.6)
--- NOTE | 2018-03-30 19:35 | CT Report ---
Procedure Date: 03/30/2018 Accession Number: [id number] / [id number] Procedure: CT - Head W/O CPT Code: FULL RESULT: EXAM: CT HEAD EXAM DATE: 03/30/2018 06:44 PM. CLINICAL HISTORY: Fall, face, lip injury. COMPARISON: HEAD ANGIO 05/30/2017 9:17 AM. TECHNIQUE: Multiaxial CT images were obtained from the foramen magnum to the vertex. Reformats: Sagittal and coronal. IV contrast: None. In accordance with CT protocol optimization, one or more of the following dose reduction techniques were utilized for this exam: automated exposure control, adjustment of mA and/or KV based on patient size, or use of iterative reconstructive technique. FINDINGS: Parenchyma: No intraparenchymal hemorrhage. No evidence of mass, midline shift, or CT findings of infarction. Morales-white differentiation is distinct. Extraaxial Spaces: Normal for age. No subdural or epidural collections identified. Ventricles: Normal in size and position. Sinuses and Orbits: Imaged paranasal sinuses, orbits, and mastoids show no significant abnormality. Bones: No evidence of fracture or calvarial defect. Other: None. IMPRESSION: Negative for an acute or focal intracranial abnormality. RADIA
--- NOTE | 2018-03-30 19:46 | CT Report ---
Procedure Date: 03/30/2018 Accession Number: [id number] / [id number] Procedure: CT - Facial Bones W/O CPT Code: FULL RESULT: EXAM: CT MAXILLOFACIAL WITHOUT CONTRAST EXAM DATE: 03/30/2018 07:03 PM. CLINICAL HISTORY: Fall, face, lip injury. COMPARISONS: HEAD ANGIO 05/30/2017 9:17 AM FACIAL BONES W/O 03/30/2018. TECHNIQUE: Thin-section axial images were acquired of the face without contrast. Post-processing: Coronal and sagittal reformats. Other: None. In accordance with CT protocol optimization, one or more of the following dose reduction techniques were utilized for this exam: automated exposure control, adjustment of mA and/or KV based on patient size, or use of iterative reconstructive technique. FINDINGS: Soft Tissue: There is soft tissue swelling of the right face. There is no radiodense foreign body. There is soft tissue swelling of the chin. Orbits: Symmetric and unremarkable. Bones: No fracture or bone lesion. Temporomandibular Joints: The temporomandibular joints are symmetric and normally located. Sinuses: There is mucosal thickening in the ethmoid sinuses. No air-fluid level. Other sinuses are clear. Other: None. IMPRESSION: 1. No acute fracture. 2. Soft tissue swelling of the right face. 3. Mild mucosal thickening, probably inflammatory disease of the ethmoid sinuses. RADIA
--- NOTE | 2018-03-30 19:48 | ED Physician Documentation ---
History of Present Illness - Stated complaint Stated Complaint: GLF/FACE AND LEG SCRAPES - Chief complaint Chief Complaint: Neuro - History obtained from History obtained from: Patient, Family, EMS - History of Present Illness Timing: Enter time Pain level max: 5 Pain level now: 0 Improved by: rest Worsened by: movement - Additonal information Additional information: Patient has parkinsons disease and was feeling tired today, so [place], tripped and fell. Unclear if he lost consciousness or not. States that he was confused initially, now better. has abrasions to face and L knee. No vomiting. No new back pain. Review of Systems Constitutional: denies: Fever, Chills Ears: denies: Ear pain Nose: denies: Rhinorrhea / runny nose Throat: denies: Sore throat Cardiac: denies: Chest pain / pressure GI: denies: Nausea, Vomiting Musculoskeletal: reports: Back pain (chronic and unchanged). denies: Neck pain PD PAST MEDICAL HISTORY - Past Medical History Past Medical History: Yes Cardiovascular: Deep vein thrombosis, Pulmonary embolism Respiratory: None Endocrine/Autoimmune: None GI: Chronic constipation, Hemorrhoids : Benign prostate hypertrophy HEENT: Chronic vision loss Psych: None Musculoskeletal: Osteoarthritis, Chronic back pain Derm: None - Past Surgical History Past Surgical History: No General: Colonoscopy Ortho: Spine surgery - Present Medications Home Medications: Ambulatory Orders Medication Instructions Recorded Confirmed Warfarin Sodium [Coumadin] 2.5 mg PO DAILY 04/15/13 05/30/17 clonazePAM [Clonazepam] 1 mg PO QPM PRN 04/15/13 05/30/17 Carbidopa/Levodopa 25/250 [Sinemet 1 each PO 5XD 10/01/13 05/30/17 25 mg/250 mg] Cyclobenzaprine [Flexeril] 10 mg PO TID PRN #20 tablet 10/01/13 05/30/17 Tamsulosin [Flomax] 0.4 mg PO QPM 10/01/13 05/30/17 Acetaminophen [Tylenol Extra 500 - 1,000 mg PO Q6H PRN 12/26/16 05/30/17 Strength] Calcium Carbonate/Vitamin D3 1 tab PO DAILY 05/30/17 05/30/17 [Calcium 600-Vit D3 400 Tablet] Docusate Sodium 100 mg PO BID 05/30/17 05/30/17 Folic Acid 1 mg PO DAILY 05/30/17 05/30/17 Lactobac No.41/Bifidobact No.7 2 cap PO DAILY 05/30/17 05/30/17 [Probiotic-10 3 Billion Cell Cp] Polyethylene Glycol 3350 [Miralax] 17 gm PO DAILY PRN 05/30/17 05/30/17 Simethicone 180 mg PO DAILY 05/30/17 05/30/17 Midodrine HCl 2.5 mg PO TIDWM #90 tablet 06/01/17 Bacitracin Zinc Oint 1 applic TOP BID #1 tube 03/30/18 Gabapentin [Neurontin] 800 mg PO TID 03/30/18 03/30/18 - Allergies Allergies/Adverse Reactions: Allergies Allergy/AdvReac Type Severity Reaction Status Date / Time No Known Drug Allergies Allergy Verified 03/30/18 17:49 - Social History Does the pt smoke?: No Smoking Status: Never smoker Does the pt drink ETOH?: No Does the pt have substance abuse?: No - Immunizations Immunizations are current?: Yes - POLST Patient has POLST: No PD ED PE NORMAL - Vitals Vital signs reviewed: Yes - General General: Alert and oriented X 3, No acute distress - HEENT HEENT: PERRL, EOMI, Moist mucous membranes (abrasions to face and lips. no lacerations), Pharynx benign, Dentition benign - Neck Neck: Supple, no meningeal sign, Other (mild mid C-spine TTP.) - Cardiac Cardiac: RRR, Strong equal pulses - Respiratory Respiratory: No respiratory distress, Clear bilaterally - Abdomen Abdomen: Soft, Non tender, Non distended - Back Back: No spinal TTP - Derm Derm: Warm and dry - Extremities Extremities: Other (abrasion over the L knee- no bony tenderness. FROM without bony tenderness. ) - Neuro Neuro: Alert and oriented X 3 - Psych Psych: Normal mood, Normal affect Results - Vitals Vitals: Vital Signs - 24 hr 03/30/18 03/30/18 03/30/18 17:44 19:14 20:49 Temperature 36.7 C Heart Rate 94 80 80 Respiratory 18 13 18 Rate Blood Pressure 107/67 147/93 H 146/99 H O2 Saturation 97 90 L 96 03/30/18 21:20 Temperature Heart Rate 74 Respiratory 16 Rate Blood Pressure 145/92 H O2 Saturation 95 Oxygen O2 Source Room air - EKG (time done) 2043 Rate: Rate (enter#) (79) Rhythm: NSR [place]: Normal Intervals: Normal [place], Wide QRS (IVCD) Ischemia: Non specific changes - Labs Labs: Laboratory Tests 03/30/18 03/30/18 03/30/18 18:10 18:10 18:10 WBC 9.0 RBC 4.83 Hgb 15.2 Hct 45.9 MCV 94.9 H MCH 31.5 H MCHC 33.1 RDW 14.0 Plt Count 239 MPV 7.5 Neut # (Auto) 7.4 H Lymph # (Auto) 0.9 L [place] # (Auto) 0.6 Eos # (Auto) 0.0 Baso # (Auto) 0.0 Absolute Nucleated RBC 0.00 Nucleated RBC % 0.0 PT 13.5 H INR 1.2 Sodium 136 Potassium 4.2 Chloride 99 L Carbon Dioxide 24 Anion Gap 13.0 BUN 25 H Creatinine 1.6 H Estimated GFR (MDRD) 43 L Glucose 129 H Calcium 9.8 Total Bilirubin 0.8 AST 34 ALT 27 Alkaline Phosphatase 68 Total Protein 7.3 Albumin 4.0 Globulin 3.3 Albumin/Globulin Ratio 1.2 Lipase 24 - Rads (name of study) head CT Radiology: Prelim report reviewed, EMP read contemporaneously, See rad report ( No acute abnormality) facial bones CT Radiology: Prelim report reviewed, EMP read contemporaneously, See rad report ( No acute abnormality) cervical spine CT Radiology: Prelim report reviewed, EMP read contemporaneously, See rad report ( No acute abnormality) PD MEDICAL DECISION MAKING - ED course Complexity details: reviewed results, re-evaluated patient, considered differential, d/w patient, d/w family ED course: Patient is a 68-year-old male who presents after after a trip and fall today. Abrasions were cleansed and bandaged. Tetanus is up-to-date. No acute findings on CT scans. No acute findings on EKG or telemetry. No acute laboratory findings. Ambulating well in the emergency department. His asked for names of neurologists in the knees were provided to her. He may also benefit from a movement disorder clinic. Patient and family counseled regarding signs and symptoms for which I believe and urgent re-evaluation would be necessary. Patient with good understanding of and agreement to plan and is comfortable going home at this time This document was made in part using voice recognition software. While efforts are made to proofread this document, sound alike and grammatical errors may occur. - Sepsis Event Vital Signs: Vital Signs - 24 hr 03/30/18 03/30/18 03/30/18 17:44 19:14 20:49 Temperature 36.7 C Heart Rate 94 80 80 Respiratory 18 13 18 Rate Blood Pressure 107/67 147/93 H 146/99 H O2 Saturation 97 90 L 96 03/30/18 21:20 Temperature Heart Rate 74 Respiratory 16 Rate Blood Pressure 145/92 H O2 Saturation 95 Oxygen O2 Source Room air Departure - Departure Disposition: Home, Self Care Clinical Impression: Parkinsons disease, Abrasion Fall Qualifiers: Encounter type: initial encounter Qualified Code(s): W19.XXXA - Unspecified fall, initial encounter Condition: Good Instructions: ED Abrasion Follow-Up: Deven Barrett DO [Primary Care Provider] - [facility] [Provider Group] Adalgisa Bejarano MD [Credentialed Staff Provider] - Waleska Chowdhury MD [Physician No Access] - Prescriptions: Bacitracin Zinc Oint 1 applic TOP BID #1 tube Comments: Return if you worsen. Keep the wounds clean. Follow up with neurology for further care. Discharge Date/Time: 03/30/18 21:20
[2018-03-30] MEDS ORDERED: BACITRACIN OINT TOP STA (20:37)
[2018-03-30 21:29] VITALS: BP 145/92
--- NOTE | 2018-03-31 09:37 | CT Report ---
Procedure Date: 03/30/2018 Accession Number: [id number] / [id number] Procedure: CT - Cervical Spine W/O CPT Code: FULL RESULT: EXAM: CT CERVICAL SPINE WITHOUT CONTRAST DATE: 03/30/2018 06:44 PM. HISTORY: Fall with facial injury. COMPARISONS: None. TECHNIQUE: Thin-section axial images were acquired of the cervical spine without contrast. Post-processing: Coronal and sagittal reformats. Other: None. In accordance with CT protocol optimization, one or more of the following dose reduction techniques were utilized for this exam: automated exposure control, adjustment of mA and/or KV based on patient size, or use of iterative reconstructive technique. FINDINGS: Alignment: No scoliosis or spondylolisthesis. Bones: There is an old posterior left second and third rib fracture. No acute cervical spine fracture. Interspace Levels/Facets: There is multilevel disk degenerative disease. There is moderate to severe disk height loss at C4-C5. There is moderate disk height loss at C6-C7. There is mild to moderate disk height loss at C3-C4 and C5-C6. Musculature: Musculature is symmetric. Other: Trachea is midline. No apical pneumothorax. IMPRESSION: 1. Multilevel degenerative disk disease. Negative for acute fracture and subluxation. RADIA
== END 2018-03-30 21:20 | disposition home or self-care (01) ==
LOC: ED 17:31
DX: S00.511A Abrasion of lip, initial encounter (principal); S80.212A Abrasion, left knee, initial encounter; W01.0XXA Fall on same level from slipping, tripping and stumbling without subsequent striking against object, initial encounter; Y93.01 Activity, walking, marching and hiking; Y92.832 Beach as the place of occurrence of the external cause; R94.31 Abnormal electrocardiogram [ECG] [EKG]; G20 Parkinson's disease; Z79.01 Long term (current) use of anticoagulants
CPT/HCPCS: 36415; 70450; 70486; 72125; 80053; 83690; 85025; 85610; 93005; 99283; A9270

== ENCOUNTER 2018-09-07 16:39 | Outpatient (CLI) | payer MEDICARE ==
--- NOTE | 2018-09-08 15:36 | Ultrasound Report ---
Reason: DVD B/L LE W/ B/L LEG PAIN Procedure Date: 09/07/2018 Accession Number: [id number] / [id number] Procedure: US - Duplex Ext Veins Bilateral CPT Code: FULL RESULT: EXAM: BILATERAL LOWER EXTREMITY VENOUS ULTRASOUND EXAM DATE: 09/07/2018 07:15 PM. CLINICAL HISTORY: Bilateral leg pain and swelling. COMPARISON: None. TECHNIQUE: Real-time sonographic vascular imaging was performed by the chef french through the lower extremities utilizing both color-flow and Doppler spectral analysis. Multiple arborist representative static images were saved for review. FINDINGS: Right: Common Femoral Vein (CFV): Normal. CFV-GSV Junction: Normal. Profunda Femoral Vein (PFV): Normal. Femoral Vein (FV) Prox: Normal. Femoral Vein (FV) Mid: Normal. Femoral Vein (FV) Dist: Normal. Popliteal Vein: Normal. Posterior Tibial Veins: Normal. Peroneal Veins: Normal. Left: Common Femoral Vein (CFV): Normal. CFV-GSV Junction: Normal. Profunda Femoral Vein (PFV): Normal. Femoral Vein (FV) Prox: Normal. Femoral Vein (FV) Mid: Normal. Femoral Vein (FV) Dist: Normal. Popliteal Vein: Normal. Posterior Tibial Veins: Normal. Peroneal Veins: Normal. Other: None. IMPRESSION: No evidence for deep venous thrombosis bilaterally. RADIA
--- NOTE | 2018-09-09 16:46 | Ultrasound Report ---
Reason: DVD B/L LE W/ B/L LEG PAIN Procedure Date: 09/07/2018 Accession Number: [id number] / [id number] Procedure: US - Duplex Lwr Ext Arterial Bilat CPT Code: FULL RESULT: EXAM: BILATERAL LOWER EXTREMITY ARTERIAL DOPPLER ULTRASOUND. EXAM DATE: 09/07/2018 06:40 PM. CLINICAL HISTORY: Bilateral leg pain and swelling. COMPARISON: Duplex extremity veins bilateral 09/07/2018 6:12 PM. TECHNIQUE: Real-time sonographic vascular imaging was performed by the engineered wood designer, utilizing color-flow, Doppler flow, and spectral analysis. Multiple patient access representative static images were saved for review. FINDINGS: Normal spectral waveforms with brisk systolic upstrokes are identified throughout the bilateral common femoral artery, profunda femoris, proximal mid and distal SFA, popliteal arteries, anterior and posterior tibial arteries, peroneal arteries and dorsalis pedis arteries by spectral Doppler. These arteries are also patent by color Doppler. The following peak systolic velocities in centimeters per second were obtained: Right Lower Extremity: GEOLOGY TECHNICIAN: PSV 27.3 cm/sec PSFA P: PSV 91.8 cm/sec MSFA M: PSV 89.0 cm/sec DSFA D: PSV 92.8 cm/sec PFA: PSV 47.4 cm/sec Pop: PSV 56.7 cm/sec RANDY: PSV 57 cm/sec ELEMENTARY SUBSTITUTE TEACHER: PSV 119.2 cm/sec PER: PSV 55.2 cm/sec DPA: PSV 119.2 cm/sec Left Lower Extremity: GEOLOGY TECHNICIAN: PSV 79.7 cm/sec PSFA P: PSV 65.8 cm/sec MSFA M: PSV 72.5 cm/sec DSFA D: PSV 59.1 cm/sec PFA: PSV 2539 cm/sec Pop: PSV 56.1 cm/sec RANDY: PSV 42.1 cm/sec ELEMENTARY SUBSTITUTE TEACHER: PSV 98.3 cm/sec PER: PSV 24.5 cm/sec DPA: PSV 114.3 cm/sec The following normal ankle brachial indices were constructed: Ankle: Right 184 / 105. Left 188 / 98. Brachial: Right 169 / 101. Left 169 / 102. SID: Right 1.09. Left 1.11. IMPRESSION: Normal arterial waveforms and patency and normal SID bilaterally. RADIA
== END 2018-09-07 16:40 | disposition home or self-care (01) ==
LOC: DI 16:39
PROVIDERS: ATTEND Podiatrist
DX: I73.9 Peripheral vascular disease, unspecified (principal)
CPT/HCPCS: 93922; 93925; 93970

== ENCOUNTER 2019-02-03 08:12 | Outpatient (CLI) | payer MEDICARE | END 2019-02-03 08:13 | disposition EMS.NT | LOC: EMS 08:12 | PROVIDERS: ATTEND Surgery | DX: R55 Syncope and collapse (principal) ==

== ENCOUNTER 2019-02-03 08:43 | Emergency (ER) | payer MEDICARE ==
--- NOTE | 2019-02-03 09:48 | ED Physician Documentation ---
PD HPI SYNCOPE - Stated complaint Stated Complaint: SYNCOPE - Chief complaint Chief Complaint: Neuro - History obtained from History obtained from: Patient, Family () - History of Present Illness Witnessed: Unwitnessed Timing - onset: How many hours ago (1) Injury occurred: None Similar symptoms before: Diagnosis (Orthostatic hypotension) - Additional information Additional information: The patient is a 69-year male with a history of parkinsonism, who presents via ambulance after a near syncopal episode while sitting talking on the telephone just prior to arrival. The patient had been talking to his daughter who is in [place], when she realized that he was not making sense and then stopped talking completely. She called his estate and trust tax principal who lives 5 minutes away. When the estate and trust tax principal arrived he found the patient sitting slumped over in the chair, barely responsive. He had difficulty finding a pulse, and called 911. At the time of arrival in the emergency department the patient is awake alert and able to answer questions. He complains of pain in his lower back, but that is a chronic condition. He denies headache, chest pain, shortness of breath, nausea or vomiting. He has a history of similar episodes in the past. 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 He has subsequently been evaluated by a neurologist, with no further explanation or treatment for his recurrent episodes of "blacking out." Review of Systems Constitutional: denies: Fever Eyes: denies: Decreased vision Ears: denies: Tinnitus/ringing Nose: denies: Congestion Throat: denies: Sore throat Cardiac: denies: Chest pain / pressure Respiratory: denies: Dyspnea, Cough GI: denies: Abdominal Pain, Nausea, Vomiting : denies: Dysuria, Incontinent Skin: denies: Rash Musculoskeletal: reports: Back pain (Chronic low back pain.) Neurologic: reports: Generalized weakness. denies: Focal weakness, Numbness, Headache, Head injury PD PAST MEDICAL HISTORY - Past Medical History Cardiovascular: Deep vein thrombosis, Pulmonary embolism Respiratory: None Neuro: Parkinson's Endocrine/Autoimmune: None GI: Chronic constipation, Hemorrhoids : Benign prostate hypertrophy HEENT: Chronic vision loss Psych: None Musculoskeletal: Osteoarthritis, Chronic back pain Derm: None - Past Surgical History Past Surgical History: No General: Colonoscopy Ortho: Spine surgery - Present Medications Home Medications: Ambulatory Orders Medication Instructions Recorded Confirmed Warfarin Sodium [Coumadin] 2.5 mg PO DAILY 04/15/13 05/30/17 clonazePAM [Clonazepam] 1 mg PO QPM PRN 04/15/13 05/30/17 Carbidopa/Levodopa 25/250 [Sinemet 1 each PO 5XD 10/01/13 05/30/17 25 mg/250 mg] Cyclobenzaprine [Flexeril] 10 mg PO TID PRN #20 tablet 10/01/13 05/30/17 Tamsulosin [Flomax] 0.4 mg PO QPM 10/01/13 05/30/17 Acetaminophen [Tylenol Extra 500 - 1,000 mg PO Q6H PRN 12/26/16 05/30/17 Strength] Calcium Carbonate/Vitamin D3 1 tab PO DAILY 05/30/17 05/30/17 [Calcium 600-Vit D3 400 Tablet] Docusate Sodium 100 mg PO BID 05/30/17 05/30/17 Folic Acid 1 mg PO DAILY 05/30/17 05/30/17 Lactobac No.41/Bifidobact No.7 2 cap PO DAILY 05/30/17 05/30/17 [Probiotic-10 3 Billion Cell Cp] Polyethylene Glycol 3350 [Miralax] 17 gm PO DAILY PRN 05/30/17 05/30/17 Simethicone 180 mg PO DAILY 05/30/17 05/30/17 Midodrine HCl 2.5 mg PO TIDWM #90 tablet 06/01/17 Bacitracin Zinc Oint 1 applic TOP BID #1 tube 03/30/18 Gabapentin [Neurontin] 800 mg PO TID 03/30/18 03/30/18 Furosemide 20 mg PO 02/03/19 02/03/19 Nitrofurantoin Monohyd/M-Cryst 100 mg PO BID #10 capsule 02/03/19 [Macrobid 100 mg Capsule] Phenazopyridine HCl [Pyridium] 200 mg PO TID PRN #6 tablet 02/03/19 - Allergies Allergies/Adverse Reactions: Allergies Allergy/AdvReac Type Severity Reaction Status Date / Time No Known Drug Allergies Allergy Verified 02/03/19 09:29 - Social History Does the pt smoke?: No Smoking Status: Never smoker Does the pt drink ETOH?: No Does the pt have substance abuse?: No - Immunizations Immunizations are current?: Yes - POLST Patient has POLST: No PD ED PE NORMAL - Vitals Vital signs reviewed: Yes (normal) - General General: Alert and oriented X 3, Well developed/nourished - HEENT HEENT: Atraumatic, PERRL, EOMI, Moist mucous membranes, Pharynx benign - Neck Neck: Supple, no meningeal sign, No adenopathy, No JVD - Cardiac Cardiac: RRR - Respiratory Respiratory: No respiratory distress, Clear bilaterally - Abdomen Abdomen: Soft, Non tender, Other (Rotund abdomen.) - Back Back: No CVA TTP, Other (Well-healed surgical scar over the lower thoracic and lumbar spine.) - Derm Derm: No rash - Extremities Extremities: No calf tenderness / cord, Other (1+ pedal edema bilaterally.) - Neuro Neuro: Alert and oriented X 3, No motor deficit, No sensory deficit, Other (Slow speech and movements, consistent with parkinsonism.) Eye Opening: Spontaneous Motor: Obeys Commands Verbal: Oriented GCS Score: 15 Results - Vitals Vitals: Vital Signs - 24 hr 02/03/19 02/03/19 02/03/19 08:54 10:36 11:20 Temperature 35.4 C L 36.4 C L Heart Rate 76 72 69 Respiratory 20 16 13 Rate Blood Pressure 115/64 152/104 H 162/98 H O2 Saturation 99 96 98 02/03/19 02/03/19 02/03/19 12:00 13:48 14:22 Temperature Heart Rate 52 L 68 74 Respiratory 19 23 14 Rate Blood Pressure 170/72 H 170/74 H 150/94 H O2 Saturation 94 94 99 Oxygen O2 Source Room air - EKG (time done) 09:10 Rate: Rate (enter#) (74) Rhythm: NSR, LAE [place]: Normal QRS: Normal Ischemia: Normal ST segments Compare to prior EKG: Unchanged from prior EKG Computer interpretation: Agree with computer - Labs Labs: Laboratory Tests 02/03/19 02/03/19 02/03/19 09:06 09:15 09:15 WBC RBC Hgb Hct MCV MCH MCHC RDW Plt Count MPV Neut # (Auto) Lymph # (Auto) [place] # (Auto) Eos # (Auto) Baso # (Auto) Absolute Nucleated RBC Nucleated RBC % PT 45.4 H INR 4.1 H Sodium Potassium Chloride Carbon Dioxide Anion Gap BUN Creatinine Estimated GFR (MDRD) Glucose POC Whole Bld Glucose 102 H Lactic Acid Calcium Total Bilirubin AST ALT Alkaline Phosphatase Troponin I < 0.04 Total Protein Albumin Globulin Albumin/Globulin Ratio Lipase TSH Urine Color Urine Clarity Urine pH Ur Specific [place] Urine Protein Urine Glucose (UA) Urine Ketones Urine Occult Blood Urine Nitrite Urine Bilirubin Urine Urobilinogen Ur Leukocyte Esterase Urine RBC Urine WBC Urine WBC Clumps Ur Squamous Epith Cells Urine Bacteria Urine Casts Ur Microscopic Review Urine Culture Comments 02/03/19 02/03/19 02/03/19 09:15 09:15 09:15 WBC 7.7 RBC 4.71 Hgb 14.6 Hct 44.2 MCV 93.7 MCH 31.1 H MCHC 33.1 RDW 13.9 Plt Count 192 MPV 7.4 Neut # (Auto) 5.1 Lymph # (Auto) 1.8 [place] # (Auto) 0.7 Eos # (Auto) 0.1 Baso # (Auto) 0.0 Absolute Nucleated RBC 0.00 Nucleated RBC % 0.0 PT INR Sodium 143 Potassium 4.0 Chloride 102 Carbon Dioxide 28 Anion Gap 13.0 BUN 24 H Creatinine 1.0 Estimated GFR (MDRD) 75 L Glucose 104 H POC Whole Bld Glucose Lactic Acid Calcium 9.4 Total Bilirubin 0.6 AST 24 ALT 17 Alkaline Phosphatase 67 Troponin I Total Protein 7.0 Albumin 4.0 Globulin 3.0 Albumin/Globulin Ratio 1.3 Lipase 25 TSH 4.57 Urine Color Urine Clarity Urine pH Ur Specific [place] Urine Protein Urine Glucose (UA) Urine Ketones Urine Occult Blood Urine Nitrite Urine Bilirubin Urine Urobilinogen Ur Leukocyte Esterase Urine RBC Urine WBC Urine WBC Clumps Ur Squamous Epith Cells Urine Bacteria Urine Casts Ur Microscopic Review Urine Culture Comments 02/03/19 02/03/19 09:55 10:28 WBC RBC Hgb Hct MCV MCH MCHC RDW Plt Count MPV Neut # (Auto) Lymph # (Auto) [place] # (Auto) Eos # (Auto) Baso # (Auto) Absolute Nucleated RBC Nucleated RBC % PT INR Sodium Potassium Chloride Carbon Dioxide Anion Gap BUN Creatinine Estimated GFR (MDRD) Glucose POC Whole Bld Glucose Lactic Acid 1.5 Calcium Total Bilirubin AST ALT Alkaline Phosphatase Troponin I Total Protein Albumin Globulin Albumin/Globulin Ratio Lipase TSH Urine Color YELLOW Urine Clarity CLOUDY Urine pH 5.5 Ur Specific [place] 1.010 Urine Protein NEGATIVE Urine Glucose (UA) NEGATIVE Urine Ketones NEGATIVE Urine Occult Blood NEGATIVE Urine Nitrite NEGATIVE Urine Bilirubin NEGATIVE Urine Urobilinogen 0.2 (NORMAL) Ur Leukocyte Esterase LARGE H Urine RBC 0-5 Urine WBC >25 H Urine WBC Clumps PRESENT Ur Squamous Epith Cells RARE Squamous Urine Bacteria Many H Urine Casts 3-5 Hyaline Casts Ur Microscopic Review INDICATED Urine Culture Comments INDICATED PD MEDICAL DECISION MAKING - ED course Complexity details: reviewed old records, reviewed results, re-evaluated patient, considered differential, d/w patient, d/w family, d/w PMD ED course: The patient's presentation is significant for near syncopal episode. Results of his workup revealed acute urinary tract infection with pyuria and bacteriuria. He does not appear septic, and his white blood cell count is normal at 7.7 and his lactate is normal at 1.5. While urinary tract infection may be a contributing factor it is unlikely to be the sole cause for his near syncope. When hospitalized one year ago with a similar event he was found to have orthostatic hypotension associated with parkinsonian autonomic instability. This remains the more likely cause for the event that occurred this morning. There is no other clinical evidence to suggest stroke or acute myocardial ischemia. Cardiac dysrhythmia remains a possibility, but there is no evidence of dysrhythmia while being monitored in the emergency department. Treatment in the emergency department included administration of normal saline 1 L IV, and ceftriaxone 1 g IV. He had no further symptoms while in the emergency department, and demonstrated ability to ambulate without lightheadedness. I discussed his condition with Dr. Ureña, his primary physician, who agrees with outpatient follow-up and possibly neurology referral. I discussed with the patient and his the results of his workup, outpatient treatment and follow-up, as well as potentially worrisome signs or symptoms that should prompt reevaluation in the emergency department. Departure - Departure Disposition: 01 Home, Self Care Clinical Impression: Near syncope, Parkinson disease Urinary tract infection Qualifiers: Urinary tract infection type: acute cystitis Hematuria presence: without hematuria Qualified Code(s): N30.00 - Acute cystitis without hematuria Condition: Stable Instructions: ED Near Syncope Unkn, ED UTI Cystitis Male Follow-Up: Umer Ureña MD [Primary Care Provider] - Prescriptions: Nitrofurantoin Monohyd/M-Cryst [Macrobid 100 mg Capsule] 100 mg PO BID #10 capsule Phenazopyridine HCl [Pyridium] 200 mg PO TID PRN #6 tablet PRN Reason: dysuria Comments: Drink plenty of fluids, including cranberry juice. Take Macrobid twice daily as prescribed. Take Pyridium as prescribed if needed for painful urination. Follow-up with your primary physician within 1 to 2 weeks. Call to schedule an appointment. Return to the emergency department if you develop fever with shaking chills, persistent vomiting, increasingly altered mental status, or otherwise worsening symptoms. Discharge Date/Time: 02/03/19 14:26
[2019-02-03 09:54] LABS: INR 4.1 (0.8-1.2); PT - PROTHROMBIN TIME 45.4 secs (9.9-12.6)
[2019-02-03 10:23] LABS: BASOPHILS % (AUTO) 0.4 %; EOSINOPHILS # (AUTO) 0.1 10^3/uL (0.0-0.7); EOSINOPHILS % (AUTO) 1.1 %; HGB - HEMOGLOBIN 14.6 g/dL (14.0-18.0); LYMPHOCYTES # (AUTO) 1.8 10^3/uL (1.5-3.5); LYMPHOCYTES % (AUTO) 23.5 %; MEAN CORPUSCULAR HEMOGLOBIN 31.1 pg (27.0-31.0); MEAN CORPUSCULAR HGB CONC 33.1 g/dL (32.0-36.0); MEAN CORPUSCULAR VOLUME 93.7 fL (80.0-94.0); MEAN PLATELET VOLUME 7.4 fL (7.4-11.4); MONOCYTES # (AUTO) 0.7 10^3/uL (0.0-1.0); MONOCYTES % (AUTO) 8.4 %; NEUTROPHILS # (AUTO) 5.1 10^3/uL (1.5-6.6); NEUTROPHILS % (AUTO) 66.6 %; PLT - PLATELET COUNT 192 10^3/uL (130-450); RED BLOOD COUNT 4.71 10^6/uL (4.70-6.10); RED CELL DISTRIBUTION WIDTH 13.9 % (12.0-15.0); WHITE BLOOD COUNT 7.7 x10^3/uL (4.8-10.8)
[2019-02-03 11:02] LABS: ALBUMIN/GLOBULIN RATIO 1.3 (1.0-2.2); BILIRUBIN,TOTAL 0.6 mg/dL (0.2-1.0); CALCIUM 9.4 mg/dL (8.5-10.3)
[2019-02-03 11:13] LABS: BILIRUBIN,URINE NEGATIVE (NEGATIVE); GLUCOSE, URINE (UA) NEGATIVE (NEGATIVE); KETONES,URINE (UA) NEGATIVE (NEGATIVE); LEUKOCYTE ESTERASE, URINE LARGE (NEGATIVE); NITRITE,URINE NEGATIVE (NEGATIVE); OCCULT BLOOD,URINE NEGATIVE (NEGATIVE); PH,URINE 5.5 PH (5.0-7.5); PROTEIN,URINE NEGATIVE (NEGATIVE); UROBILINOGEN,URINE 0.2 (NORMAL) E.U./dL (NORMAL)
[2019-02-03 11:14] LABS: CLARITY,URINE CLOUDY (CLEAR)
[2019-02-03 11:24] LABS: BACTERIA,URINE Many /HPF (None Seen); CASTS, URINE 3-5 Hyaline Casts /LPF; RBC,URINE 0-5 /HPF (0-5); SQUAMOUS EPITHELIAL CELL,UR RARE Squamous (<= Few); WBC CLUMPS,URINE PRESENT
--- NOTE | 2019-02-03 11:40 | CT Report ---
Reason: syncopal episode Procedure Date: 02/03/2019 Accession Number: [id number] / [id number] Procedure: CT - HEAD WO CPT Code: FULL RESULT: EXAM: CT HEAD WITHOUT IV CONTRAST EXAM DATE: 02/03/2019 11:11 AM. CLINICAL HISTORY: Syncopal episode. COMPARISON: FACIAL BONES W/O 03/30/2018. TECHNIQUE: Multiaxial CT images were obtained from the foramen magnum to the vertex. Reformats: Sagittal and coronal. IV contrast: None. In accordance with CT protocol optimization, one or more of the following dose reduction techniques were utilized for this exam: automated exposure control, adjustment of mA and/or KV based on patient size, or use of iterative reconstructive technique. FINDINGS: Parenchyma: No intraparenchymal hemorrhage. No evidence of mass or midline shift. Morales-white differentiation is distinct. Extraaxial Spaces: Normal for age. No subdural or epidural collections identified. Ventricles: Normal in size and position. Sinuses and Orbits: Imaged paranasal sinuses, orbits, and mastoids show no significant abnormality. Bones: No evidence of fracture or calvarial defect. Other: None. IMPRESSION: Negative. RADIA
[2019-02-03] MEDS ORDERED: cefTRIAXone 1 GM in SODIUM CHLORIDE 0.9% MINIBAG 100 ML IV STA (12:34)
[2019-02-03] MEDS ORDERED: SODIUM CHLORIDE 0.9% 1,000 ML IV ONE (12:35)
[2019-02-03 14:23] VITALS: BP 150/94
== END 2019-02-03 14:26 | disposition home or self-care (01) ==
LOC: ED 08:43
DX: N30.00 Acute cystitis without hematuria (principal); G90.3 Multi-system degeneration of the autonomic nervous system; M54.5 Low back pain; G89.29 Other chronic pain; Z86.718 Personal history of other venous thrombosis and embolism; Z86.711 Personal history of pulmonary embolism; Z79.01 Long term (current) use of anticoagulants; Z79.899 Other long term (current) drug therapy
CPT/HCPCS: 36415; 70450; 80053; 81001; 81003; 83605; 83690; 84443; 84484; 85025; 85610; 87077; 87086; 93005; 96365; 99283; 99284

== ENCOUNTER 2019-03-10 16:52 | Outpatient (CLI) | payer MEDICARE ==
--- NOTE | 2019-03-11 15:39 | MRI Report ---
Reason: CHRONIC LOW BACK PAIN WITH RADICULOPATHY Procedure Date: 03/10/2019 Accession Number: [id number] / [id number] Procedure: MRI - Thoracic Spine W/O CPT Code: FULL RESULT: MRI THORACIC SPINE WITHOUT CONTRAST INDICATION: 69-year-old male. Chronic back pain with radiculopathy. Please assess. TECHNIQUE: 1. Sagittal STIR, T1 and T2. 2. Axial T1 and T2. COMPARISON: None. FINDINGS: There is a mild levoconvex upper thoracic scoliosis with mild dextroconvex curvature with apex at about the T7-T8 disk level. In the sagittal plane there is some straightening of the thoracic alignment with very minimal kyphosis. Also demonstrated is a minimal retrolisthesis of C7 on T8 and anterolisthesis of T10 on T11. Alignment is otherwise unremarkable. There is minimal anterior wedging of the T1, T5, T6 and T7 vertebral bodies with at least mild anterior wedging of T10 and T12. The vertebral body heights are otherwise maintained. There is no evidence of recent thoracic spine compression fracture. The upper end of a multilevel, instrumented posterior thoracolumbar fusion is identified with left-sided pedicle screws demonstrated at T10, T11 and T12. There are bilateral pedicle screws at L1. There is magnetic susceptibility artifact from the fusion hardware; however, this is not resulting in significant image degradation. There is absence of normal T2 signal from the disks at virtually all levels, confirming disk degeneration. In addition, there is multilevel degenerative disk space narrowing, most prominent from T5-T6 to T8-T9. A few focal disk herniations are identified as follows: At T6-T7 there is a shallow, right paracentral extrusion. It causes minimal mass-effect on the thecal sac. No spinal stenosis. At the T8-T9 there is a tiny, shallow protrusion paracentrally on the left with minimal mass-effect on the thecal side. No spinal stenosis. At T10-T11 there is a shallow posterior protrusion with minimal mass-effect on the thecal sac. No spinal stenosis. There is multilevel degenerative facet arthrosis with associated bony hypertrophy that is most prominent at the T8-T9 through T10-T11 levels. There is associated foraminal narrowing that appears to be most pronounced at T9-T10 on the right and at T8-T9 and T9-T10 on the left. The degree of stenosis is considered moderate. No high-grade foraminal narrowing is identified. Type II reactive marrow changes are identified in the vertebral endplates at T9-T10. A few intraosseous hemangiomata are demonstrated. The marrow signal intensity is otherwise unremarkable. IMPRESSION: 1. Mild thoracolumbar scoliosis as described. 2. There is mild anterior wedging of multiple thoracic vertebrae, consistent with the sequela of old healed endplate compression fractures. No evidence of recent thoracic spine compression fracture. 3. Multilevel degenerative disk disease. A few small disk herniations are demonstrated. There is no associated spinal stenosis. No evidence of spinal cord impingement. 4. There are bony foraminal stenoses in the lower lumbar spine as documented above. However, no high-grade foraminal narrowing is demonstrated and there is no obvious impingement of any exiting thoracic nerve roots. 5. No other specific diagnostic findings.
--- NOTE | 2019-03-11 15:41 | MRI Report ---
Reason: CHRONIC LOW BACK PAIN WITH RADICULOPATHY Procedure Date: 03/10/2019 Accession Number: [id number] / [id number] Procedure: MRI - Lumbar Spine W/O CPT Code: FULL RESULT: MRI LUMBAR SPINE WITHOUT CONTRAST INDICATION: 69-year-old male. Chronic low back pain with radiculopathy. TECHNIQUE: 1. Sagittal STIR, T1 and T2. 2. Axial T1 and T2. 3. T2 coronal. Images from a previous abdomen/pelvis CT have been reviewed, confirming the presence of 5 [id number], lumbar type vertebrae. Noted is a fairly well-formed S1-S2 disk. Postsurgical changes are again demonstrated in the lumbar spine, also seen on previous CT examination of 02/14/2016 but new when compared to the MRI study from 11/25/2014. There is evidence of previous diskectomy and interbody fusion surgery at L3-L4 and L4-L5. Interbody fusion devices are seen positioned within the disk space at both levels. There is considerable magnetic susceptible to artifact from fusion hardware. However, there is no obvious trabecular bone traversing the disk spaces at L3-L4 or L4-L5 to confirm interbody fusion. This suggests the possibility of nonunion, a potential cause for pain. Also again demonstrated are findings related to previous instrumented posterolateral fusion that extends from a L1-S1 on the right and from T10-S1 on the left with pedicle screws and interconnecting rods in place. There is magnetic susceptible to artifact from the pedicle screws and somewhat limits evaluation of the neural foramina, especially at the L4-L5 level on the right. There is deformity of the L1 vertebral body with concavity of the superior endplate and associated anterior/central height loss on the left, unchanged when compared to the CT study from 02/14/2016. There is minimal anterior wedging of T12, stable. The vertebral body heights are otherwise preserved. There is no evidence of a recent lumbar spine compression fracture. Again demonstrated is a mild dextroconvex scoliosis with apex at L2, unchanged when compared to the previous abdomen/pelvis CT from January 2016. Also again noted is mild right lateral listhesis of L2 on L3. There is a mild levoconvex lower lumbar curvature with apex at L4, stable. In the sagittal plane, again demonstrated is minor retrolisthesis of T12 on L1 and L1 on L2, unchanged. There is minor anterolisthesis of L5 on S1, stable. Degenerative changes are demonstrated in the disks at all levels. There is relatively severe disk space narrowing on the left at L1-L2 and L2-L3, unchanged. Mild to moderate disk space narrowing again noted posteriorly at L5-S1. The T11-T12 and T12-L1 disk space heights remain preserved. The marrow signal to see is unremarkable. The conus is obscured due to artifact from fusion hardware. However, the previous MRI study from 11/25/2014 demonstrates that the tip of the conus is low lying, terminating about the lower L2 level. There is no abnormal thickening or lipomatous change of the filum. Therefore the possibility of cord tethering is considered unlikely. Axial images: T12-L1: Retrolisthesis with associated uncovering of the disk. No obvious focal disk herniation is demonstrated. No significant spinal canal or foraminal stenosis. L1-L2: Retrolisthesis with associated uncovering the disk. There appear to be small intra-/extraforaminal extrusions bilaterally. There is at least moderate left-sided foraminal stenosis. No escobar impingement of the exiting left L1 nerve root is demonstrated. No right foraminal stenosis. No significant spinal stenosis. L2-L3: No disk herniation. No spinal stenosis. Mild to moderate left foraminal stenosis. No right foraminal narrowing. L3-L4: No disk herniation or spinal stenosis. Mild to moderate left foraminal stenosis. No right foraminal narrowing. L4-L5: No spinal stenosis. The right neural foramen is poorly seen due to artifact from right-sided pedicle screw. There could potentially be severe narrowing on the right. Mild left foraminal stenosis. No spinal stenosis. L5-S1: Small right-sided intraforaminal extrusion, essentially unchanged. Mild to moderate right foraminal stenosis. No apparent compromise exiting right L5 nerve root. Mild left foraminal stenosis. No spinal stenosis. IMPRESSION: 1. Extensive postsurgical changes are again demonstrated in the lumbar spine, as demonstrated on previous abdomen/pelvis CT 02/14/2016. Again demonstrated are changes related to previous diskectomy and interbody fusion surgery at L3-L4 and L4-L5. Assessment is limited due to magnetic susceptible to artifact from fusion hardware. However, there is no obvious trabecular bone traversing the L3-L4 or L4-L5 disk spaces. This suggests the possibility of nonunion, a potential cause for pain. This could be further evaluated with CT, if desired. 2. Degenerative disk and facet changes are seen at multiple levels, as documented above. There is no spinal stenosis. 3. Magnetic susceptible to artifact from right-sided pedicle screws is significantly limits evaluation of the right L4-L5 foramen. There may be significant stenosis on the right at L4-L5 suggesting the possibility of right L4 nerve root impingement. Recommend clinical correlation for possible L4 radiculopathy. 4. No other potential high-grade stenosis is identified and no other potential cause for lumbar radiculopathy is demonstrated.
== END 2019-03-10 16:53 | disposition home or self-care (01) ==
LOC: DI 16:52
PROVIDERS: ATTEND Physician Assistant Medical
DX: M51.16 Intervertebral disc disorders with radiculopathy, lumbar region (principal); M51.34 Other intervertebral disc degeneration, thoracic region; M41.85 Other forms of scoliosis, thoracolumbar region
CPT/HCPCS: 72146; 72148

== ENCOUNTER 2019-06-10 15:59 | Emergency (ER) | payer MEDICARE ==
[2019-06-10] MEDS ORDERED: traMADol 50 MG TABLET PO STA (18:01)
[2019-06-10 18:30] LABS: BASOPHILS % (AUTO) 0.5 %; EOSINOPHILS # (AUTO) 0.1 10^3/uL (0.0-0.7); EOSINOPHILS % (AUTO) 1.1 %; MEAN CORPUSCULAR HEMOGLOBIN 31.9 pg (27.0-31.0); MEAN CORPUSCULAR HGB CONC 31.6 g/dL (32.0-36.0); MEAN CORPUSCULAR VOLUME 101.2 fL (80.0-94.0); MEAN PLATELET VOLUME 9.1 fL (7.4-11.4); MONOCYTES # (AUTO) 0.9 10^3/uL (0.0-1.0); MONOCYTES % (AUTO) 10.2 %; NEUTROPHILS # (AUTO) 5.4 10^3/uL (1.5-6.6); NEUTROPHILS % (AUTO) 63.6 %; PLT - PLATELET COUNT 238 10^3/uL (130-450); RED BLOOD COUNT 4.07 10^6/uL (4.70-6.10); RED CELL DISTRIBUTION WIDTH 13.6 % (12.0-15.0); WHITE BLOOD COUNT 8.4 x10^3/uL (4.8-10.8)
--- NOTE | 2019-06-10 18:35 | XRAY Report ---
Reason: hand pain, swelling Procedure Date: 06/10/2019 Accession Number: [id number] / [id number] Procedure: XR - Hand 3 View RT CPT Code: FULL RESULT: EXAM: RIGHT HAND RADIOGRAPHY EXAM DATE: 06/10/2019 06:18 PM. CLINICAL HISTORY: Hand pain, swelling. COMPARISON: 05/27/2019 8:02 PM HAND 3 VIEW RT 05/27/2019 12:10 PM. TECHNIQUE: 3 views. FINDINGS: Bones: Fracture lines for the prior third and fourth metacarpal base fractures are less distinct. Again internal fixation K wire is noted with expected alignment. No new fracture lines. Joints: Fifth carpometacarpal subluxation again seen. Soft Tissues: Mild soft tissue swelling seen at the hypthenar oeminence. IMPRESSION: 1. Less distinct fracture line to the prior third and fourth metacarpal base fractures. No new fractures. 2. Expected alignment of K wire for internal fixation. 3. Fifth carpometacarpal subluxation again noted. RADIA
--- NOTE | 2019-06-10 18:52 | ED Physician Documentation ---
PD HPI UPPER EXT INJURY - Stated complaint Stated Complaint: R HAND INJURY - Chief complaint Chief Complaint: Ext Problem - History obtained from History obtained from: Patient - History of Present Illness Location: Right, Hand Type of injury: Other (swelling, pain) Where injury occurred: Home (pt is s/p ex-fix placement and splinting for R hand metacarpal fractures) Timing - onset: How many weeks ago (2) Timing - duration: Weeks (2) Timing - details: Abrupt onset Severity Comments: moderate Associated symptoms: Swelling, Discolored. No: Weakness, Numbness, Tingling Contributing factors: Anticoagulated, Prior ortho surgery Similar symptoms before: Has not had sx before Recently seen: Not recently seen - Treatment prior to arrival Treatment prior to arrival: pt has been elevating the wrist and it is splinted - Additonal information Additional information: 69 y/o M 2 weeks s/p ex-fix of R hand by Dr. Meza at [facility] for a 5th metacarpal fracture with dislocation and third fourth metacarpal base fractures that occurred on 05/27, patient's surgery was on the same day. He since then has a cast on first that was changed to a splint but pt has had persistent swelling since the surgery, not improving and now with increasing redness and warmth and discomfort over the hand extending to the R wrist and distal forearm. He denies fever. Review of Systems Ten Systems: 10 systems reviewed and negative Constitutional: denies: Fever Cardiac: reports: Reviewed and negative Respiratory: reports: Reviewed and negative GI: reports: Reviewed and negative Skin: reports: Rash Musculoskeletal: reports: Extremity pain, Extremity swelling Neurologic: denies: Focal weakness, Numbness Immunocompromised: denies: Immunocompromised PD PAST MEDICAL HISTORY - Past Medical History Past Medical History: Yes Cardiovascular: Deep vein thrombosis, Pulmonary embolism Respiratory: None Neuro: Parkinson's Endocrine/Autoimmune: None GI: Chronic constipation, Hemorrhoids : Benign prostate hypertrophy HEENT: Chronic vision loss Psych: None Musculoskeletal: Osteoarthritis, Chronic back pain Derm: None - Past Surgical History Past Surgical History: No General: Colonoscopy Ortho: Spine surgery - Present Medications Home Medications: Ambulatory Orders Medication Instructions Recorded Confirmed Warfarin Sodium [Coumadin] 2.5 mg PO DAILY 04/15/13 05/30/17 clonazePAM [Clonazepam] 1 mg PO QPM PRN 04/15/13 05/30/17 Carbidopa/Levodopa 25/250 [Sinemet 1 each PO 5XD 10/01/13 05/30/17 25 mg/250 mg] Cyclobenzaprine [Flexeril] 10 mg PO TID PRN #20 tablet 10/01/13 05/30/17 Tamsulosin [Flomax] 0.4 mg PO QPM 10/01/13 05/30/17 Acetaminophen [Tylenol Extra 500 - 1,000 mg PO Q6H PRN 12/26/16 05/30/17 Strength] Calcium Carbonate/Vitamin D3 1 tab PO DAILY 05/30/17 05/30/17 [Calcium 600-Vit D3 400 Tablet] Docusate Sodium 100 mg PO BID 05/30/17 05/30/17 Folic Acid 1 mg PO DAILY 05/30/17 05/30/17 Lactobac No.41/Bifidobact No.7 2 cap PO DAILY 05/30/17 05/30/17 [Probiotic-10 3 Billion Cell Cp] Polyethylene Glycol 3350 [Miralax] 17 gm PO DAILY PRN 05/30/17 05/30/17 Simethicone 180 mg PO DAILY 05/30/17 05/30/17 Midodrine HCl 2.5 mg PO TIDWM #90 tablet 06/01/17 Gabapentin [Neurontin] 800 mg PO TID 03/30/18 03/30/18 Furosemide 20 mg PO 02/03/19 02/03/19 Clindamycin HCl [Clindamycin 300MG 300 mg PO Q6H #28 capsule 06/10/19 CAP] - Allergies Allergies/Adverse Reactions: Allergies Allergy/AdvReac Type Severity Reaction Status Date / Time No Known Drug Allergies Allergy Verified 06/10/19 16:10 - Social History Does the pt smoke?: No Smoking Status: Never smoker Does the pt drink ETOH?: No Does the pt have substance abuse?: No - Immunizations Immunizations are current?: Yes - POLST Patient has POLST: No PD ED PE NORMAL - Vitals Vital signs reviewed: Yes - General General: Alert and oriented X 3, No acute distress, Well developed/nourished - HEENT HEENT: Atraumatic - Neck Neck: Supple, no meningeal sign - Cardiac Cardiac: RRR - Respiratory Respiratory: No respiratory distress - Abdomen Abdomen: Non distended - Male Male : Deferred - Rectal Rectal: Deferred - Neuro Neuro: Alert and oriented X 3, No motor deficit, No sensory deficit Eye Opening: Spontaneous Motor: Obeys Commands Verbal: Oriented GCS Score: 15 - Psych Psych: Normal mood, Normal affect PD ED PE EXPANDED - Derm Derm: Warm and dry, Other (skin overlying R hand with pin in place, Ex-fix pin is normal appearing, hand is diffusely swollen, erythematous, hot to touch. ) - Extremities Extremities: Tenderness, Swelling, Right hand, Motor intact, Sensory intact, Vascular intact, Other (redness, from mid hand to R wrist and distal forearm, wa rm, swollen) Results - Vitals Vitals: Vital Signs - 24 hr 06/10/19 06/10/19 16:05 20:20 Temperature 36.7 C 36.6 C Heart Rate 84 80 Respiratory 16 16 Rate Blood Pressure 117/65 120/66 O2 Saturation 94 95 Oxygen O2 Source Room air - Labs Labs: Laboratory Tests 06/10/19 06/10/19 06/10/19 18:17 18:17 18:17 WBC 8.4 RBC 4.07 L Hgb 13.0 L Hct 41.2 L MCV 101.2 H MCH 31.9 H MCHC 31.6 L RDW 13.6 Plt Count 238 MPV 9.1 Neut # (Auto) 5.4 Lymph # (Auto) 2.0 Calloway # (Auto) 0.9 Eos # (Auto) 0.1 Baso # (Auto) 0.0 Absolute Nucleated RBC 0.00 Nucleated RBC % 0.0 ESR 46 H PT INR Sodium 142 Potassium 4.5 Chloride 104 Carbon Dioxide 28 Anion Gap 10.0 BUN 29 H Creatinine 1.0 Estimated GFR (MDRD) 75 L Glucose 112 H Calcium 9.0 C-Reactive Protein 2.0 H 06/10/19 18:17 WBC RBC Hgb Hct MCV MCH MCHC RDW Plt Count MPV Neut # (Auto) Lymph # (Auto) Calloway # (Auto) Eos # (Auto) Baso # (Auto) Absolute Nucleated RBC Nucleated RBC % ESR PT 24.5 H INR 2.3 H Sodium Potassium Chloride Carbon Dioxide Anion Gap BUN Creatinine Estimated GFR (MDRD) Glucose Calcium C-Reactive Protein INR is 2.3 and therapeutic ESR is elevated to 46 - Rads (name of study) Right hand xray Radiology: Final report received, See rad report PD MEDICAL DECISION MAKING - ED course Complexity details: reviewed old records, reviewed results, re-evaluated patient, considered differential, d/w patient, d/w family ED course: ddx - cellulitis, osteomyelitis, hardware infection, abscess, fluid collection, allergic reaction, dependent edema, postoperative pain and swelling 69 y/o M with hx and exam as documented, on coumadin, INR here today is 2.3 and appropriately therapeutic, he appears to have significant R hand swelling, redness, and warmth 2 weeks s/p ex-fix for a 5th metacarpal fx dislocation and 3rd & 4th metacarpal fractures. I am concerned for infection given this presentation though he is afebrile. His labs show a normal WBC and only a mildly elevated CRP but his ESR is signifcantly elevated more than would be expected 2 weeks s/p surgery. Dr Meza his Orthopedic surgeon is unfortunately not typing section chief this weekend and no Orthopedic consultation is available at this hospital. Discussed case with Jose and they agree with plan for pt to trial antibiotics and return for a wound recheck tomorrow. Family would prefer this rather than going to [facility]. They understand that they may still need to go to another hospital for Orthopedic evaluation tomorrow given we will again have no Orthopedics typing section chief. I gave the patient Clindamycin due to his being on warfarin rather than giving him Bactrim. He was also given a prescription for Clindamycin. Departure - Departure Disposition: 01 Home, Self Care Clinical Impression: Postoperative pain, Swelling of right hand Condition: Stable Record reviewed to determine appropriate education?: Yes Instructions: ED Wound Check Post Op No Infec Follow-Up: Christine Srinivasan MD [Emergency Provider] - Tomorrow (to recheck his wound ) Prescriptions: Clindamycin HCl [Clindamycin 300MG CAP] 300 mg PO Q6H #28 capsule Discharge Date/Time: 06/10/19 20:20
[2019-06-10] MEDS ORDERED: LIDOCAINE 1% 2 ML VIAL MC ONE (19:14)
[2019-06-10] MEDS ORDERED: cefTRIAXone 250 MG VIAL IM STA (19:14)
[2019-06-10] MEDS ORDERED: SULFAMETH/TRIMETH DS 800/160 MG TABLET PO STA (19:14)
[2019-06-10] MEDS ORDERED: SULFAM/TRIM 800/160 Prepack 2 PO STA (19:16)
[2019-06-10] MEDS ORDERED: CLINDAMYCIN 150 MG CAPSULE PO STA (19:17)
[2019-06-10 19:24] LABS: INR 2.3 (0.8-1.2); PT - PROTHROMBIN TIME 24.5 secs (9.9-12.6)
[2019-06-10 20:25] VITALS: BP 120/66
== END 2019-06-10 20:20 | disposition home or self-care (01) ==
LOC: ED 15:59
DX: G89.18 Other acute postprocedural pain (principal); M79.641 Pain in right hand; M79.89 Other specified soft tissue disorders; S62.312D Displaced fracture of base of third metacarpal bone, right hand, subsequent encounter for fracture with routine healing; S62.314D Displaced fracture of base of fourth metacarpal bone, right hand, subsequent encounter for fracture with routine healing; S63.054D Dislocation of other carpometacarpal joint of right hand, subsequent encounter; X58.XXXD Exposure to other specified factors, subsequent encounter; G20 Parkinson's disease; Z79.01 Long term (current) use of anticoagulants; Z86.718 Personal history of other venous thrombosis and embolism; Z86.711 Personal history of pulmonary embolism; Z86.73 Personal history of transient ischemic attack (TIA), and cerebral infarction without residual deficits
CPT/HCPCS: 36415; 73130; 80048; 85025; 85610; 85651; 86140; 99283; 99284; A9270

== ENCOUNTER 2019-09-16 07:47 | Outpatient (CLI) | payer MEDICARE | END 2019-09-16 07:48 | disposition EMS.NT | LOC: EMS 07:47 | PROVIDERS: ATTEND Surgery | DX: R56.9 Unspecified convulsions (principal) ==

== ENCOUNTER 2019-09-16 09:17 | Emergency (ER) | payer MEDICARE ==
--- NOTE | 2019-09-16 09:54 | ED Physician Documentation ---
PD HPI SEIZURE - Stated complaint Stated Complaint: LOC - Chief complaint Chief Complaint: Neuro - History obtained from History obtained from: Patient - History of Present Illness Timing - onset: Today Witnessed: Witnessed Number of seizures: Single Description of seizure activity: Generalized Injury during seizure: None Associated symptoms: None History of seizures: Known seizure disorder Contributing factors: Other (parkinsons) Similar symptoms before: Diagnosis (syncope and siezure) Recently seen: Not recently seen - Additional information Additional information: 69 y/o male with a history of Parkinson's has had a seizure Today while in the basement of the [employer]. He was having breakfast with friends when this occurred. He had no specific trigger. The patient states that he has been having an issue with seizure about once to twice per month. He has an appointment to see a neurologist in the coming week. He will be seeing a neurologist that specializes in Parkinson's in [place].He states he does not feel ill currently. Review of Systems Constitutional: denies: Fever, Chills Eyes: denies: Decreased vision Ears: denies: Ear pain Nose: denies: Rhinorrhea / runny nose, Congestion Throat: denies: Sore throat Cardiac: denies: Chest pain / pressure, Palpitations Respiratory: reports: Cough. denies: Dyspnea GI: denies: Nausea, Vomiting : denies: Dysuria PD PAST MEDICAL HISTORY - Past Medical History Cardiovascular: Deep vein thrombosis, Pulmonary embolism Respiratory: None Neuro: Parkinson's Endocrine/Autoimmune: None GI: Chronic constipation, Hemorrhoids : Benign prostate hypertrophy HEENT: Chronic vision loss Psych: None Musculoskeletal: Osteoarthritis, Chronic back pain Derm: None - Past Surgical History Past Surgical History: No General: Colonoscopy Ortho: Spine surgery - Present Medications Home Medications: Ambulatory Orders Medication Instructions Recorded Confirmed Warfarin Sodium [Coumadin] 2.5 mg PO DAILY 04/15/13 05/30/17 clonazePAM [Clonazepam] 1 mg PO QPM PRN 04/15/13 05/30/17 Carbidopa/Levodopa 25/250 [Sinemet 1 each PO 5XD 10/01/13 05/30/17 25 mg/250 mg] Cyclobenzaprine [Flexeril] 10 mg PO TID PRN #20 tablet 10/01/13 05/30/17 Tamsulosin [Flomax] 0.4 mg PO QPM 10/01/13 05/30/17 Acetaminophen [Tylenol Extra 500 - 1,000 mg PO Q6H PRN 12/26/16 05/30/17 Strength] Calcium Carbonate/Vitamin D3 1 tab PO DAILY 05/30/17 05/30/17 [Calcium 600-Vit D3 400 Tablet] Docusate Sodium 100 mg PO BID 05/30/17 05/30/17 Folic Acid 1 mg PO DAILY 05/30/17 05/30/17 Lacto No.41/B.bifid/B.animalis 2 cap PO DAILY 05/30/17 05/30/17 [Advanced Probiotic-10 3B Cell] Simethicone 180 mg PO DAILY 05/30/17 05/30/17 polyethylene glycoL 3350 [Miralax] 17 gm PO DAILY PRN 05/30/17 05/30/17 Midodrine HCl 2.5 mg PO TIDWM #90 tablet 06/01/17 Gabapentin [Neurontin] 800 mg PO TID 03/30/18 03/30/18 Furosemide 20 mg PO 02/03/19 02/03/19 Clindamycin HCl [Clindamycin 300MG 300 mg PO Q6H #28 capsule 06/10/19 CAP] - Allergies Allergies/Adverse Reactions: Allergies Allergy/AdvReac Type Severity Reaction Status Date / Time No Known Drug Allergies Allergy Verified 09/16/19 09:28 - Social History Does the pt smoke?: No Smoking Status: Never smoker Does the pt drink ETOH?: No Does the pt have substance abuse?: No - Immunizations Immunizations are current?: Yes - POLST Patient has POLST: No PD ED PE NORMAL - Vitals Vital signs reviewed: Yes (hypertensive ) - General General: Alert and oriented X 3, No acute distress, Well developed/nourished - HEENT HEENT: Atraumatic, PERRL, EOMI, Other (dry mucous membranes ) - Neck Neck: Supple, no meningeal sign, No bony TTP - Cardiac Cardiac: RRR, No murmur - Respiratory Respiratory: No respiratory distress, Clear bilaterally - Abdomen Abdomen: Soft, Non tender - Back Back: No CVA TTP, No spinal TTP - Derm Derm: Normal color, Warm and dry, No rash - Extremities Extremities: No deformity, Normal ROM s pain, No edema, No calf tenderness / cord - Neuro Neuro: Alert and oriented X 3, wardsperson 2-12 intact, No motor deficit, No sensory deficit, Normal speech Eye Opening: Spontaneous Motor: Obeys Commands Verbal: Oriented GCS Score: 15 - Psych Psych: Normal mood, Normal affect Results - Vitals Vitals: Vital Signs - 24 hr 09/16/19 09/16/19 09/16/19 09:25 11:00 12:35 Temperature 36.5 C 36.7 C Heart Rate 84 71 74 Respiratory 14 15 15 Rate Blood Pressure 139/79 H 132/88 H 122/84 H O2 Saturation 99 97 97 Oxygen O2 Source Room air - EKG (time done) 1010 Rate: Rate (enter#) (75) QRS: Low voltage Ischemia: Q waves, Non specific changes Compare to prior EKG: Unchanged from prior EKG (SPT 02-03-2019 no significant change) Computer interpretation: Agree with computer - Labs Labs: Laboratory Tests 09/16/19 09/16/19 09/16/19 09:55 09:55 09:55 WBC 9.7 RBC 4.64 L Hgb 14.1 Hct 44.9 MCV 96.8 H MCH 30.4 MCHC 31.4 L RDW 12.8 Plt Count 219 MPV 8.8 Neut # (Auto) 7.2 H Lymph # (Auto) 1.5 Rolette # (Auto) 0.9 Eos # (Auto) 0.1 Baso # (Auto) 0.0 Absolute Nucleated RBC 0.00 Nucleated RBC % 0.0 PT 24.3 H INR 2.2 H Sodium 143 Potassium 3.8 Chloride 106 Carbon Dioxide 27 Anion Gap 10.0 BUN 28 H Creatinine 1.2 Estimated GFR (MDRD) 60 L Glucose 69 L Lactic Acid Calcium 8.9 Total Bilirubin 0.7 AST 21 ALT 16 Alkaline Phosphatase 87 Troponin I High Sens Total Protein 6.9 Albumin 4.0 Globulin 2.9 Albumin/Globulin Ratio 1.4 Lipase 28 Urine Color Urine Clarity Urine pH Ur Specific Minerva Urine Protein Urine Glucose (UA) Urine Ketones Urine Occult Blood Urine Nitrite Urine Bilirubin Urine Urobilinogen Ur Leukocyte Esterase Ur Microscopic Review Urine Culture Comments 09/16/19 09/16/19 09/16/19 09:55 09:55 12:01 WBC RBC Hgb Hct MCV MCH MCHC RDW Plt Count MPV Neut # (Auto) Lymph # (Auto) Rolette # (Auto) Eos # (Auto) Baso # (Auto) Absolute Nucleated RBC Nucleated RBC % PT INR Sodium Potassium Chloride Carbon Dioxide Anion Gap BUN Creatinine Estimated GFR (MDRD) Glucose Lactic Acid 2.1 Calcium Total Bilirubin AST ALT Alkaline Phosphatase Troponin I High Sens 2.6 Total Protein Albumin Globulin Albumin/Globulin Ratio Lipase Urine Color YELLOW Urine Clarity CLEAR Urine pH 7.0 Ur Specific Minerva 1.010 Urine Protein NEGATIVE Urine Glucose (UA) NEGATIVE Urine Ketones NEGATIVE Urine Occult Blood NEGATIVE Urine Nitrite NEGATIVE Urine Bilirubin NEGATIVE Urine Urobilinogen 0.2 (NORMAL) Ur Leukocyte Esterase NEGATIVE Ur Microscopic Review NOT INDICATED Urine Culture Comments NOT INDICATED Procedures - IVC sono (time) 1055 Bedside IVC sono: IVC measures (cm) (1.75), Euvolemia PD MEDICAL DECISION MAKING - ED course Complexity details: reviewed old records, reviewed results, re-evaluated patient, considered differential, d/w patient ED course: 69-year-old male with history of Parkinson's has had a seizure witnessed today he did not have any injury related to that he is no longer postictal here in the emergency department and no specific trigger was discovered for his seizure. He does have follow-up with neurology in the coming week. He will remain on seizure precautions. He has been having seizure 1-2 times per month. Departure - Departure Disposition: 01 Home, Self Care Clinical Impression: Seizure Condition: Stable Instructions: ED Seizure Recurrent Follow-Up: Umer Ureña MD [Primary Care Provider] - Discharge Date/Time: 09/16/19 13:45
[2019-09-16 10:03] LABS: BASOPHILS % (AUTO) 0.3 %; EOSINOPHILS # (AUTO) 0.1 10^3/uL (0.0-0.7); EOSINOPHILS % (AUTO) 0.6 %; HGB - HEMOGLOBIN 14.1 g/dL (14.0-18.0); LYMPHOCYTES # (AUTO) 1.5 10^3/uL (1.5-3.5); LYMPHOCYTES % (AUTO) 15.1 %; MEAN CORPUSCULAR HEMOGLOBIN 30.4 pg (27.0-31.0); MEAN CORPUSCULAR HGB CONC 31.4 g/dL (32.0-36.0); MEAN CORPUSCULAR VOLUME 96.8 fL (80.0-94.0); MEAN PLATELET VOLUME 8.8 fL (7.4-11.4); MONOCYTES # (AUTO) 0.9 10^3/uL (0.0-1.0); MONOCYTES % (AUTO) 8.8 %; NEUTROPHILS # (AUTO) 7.2 10^3/uL (1.5-6.6); NEUTROPHILS % (AUTO) 74.8 %; PLT - PLATELET COUNT 219 10^3/uL (130-450); RED BLOOD COUNT 4.64 10^6/uL (4.70-6.10); RED CELL DISTRIBUTION WIDTH 12.8 % (12.0-15.0); WHITE BLOOD COUNT 9.7 x10^3/uL (4.8-10.8)
[2019-09-16 10:18] LABS: ALBUMIN/GLOBULIN RATIO 1.4 (1.0-2.2); BILIRUBIN,TOTAL 0.7 mg/dL (0.2-1.0); CALCIUM 8.9 mg/dL (8.5-10.3); CREATININE 1.2 mg/dL (0.6-1.2); TOTAL PROTEIN 6.9 g/dL (6.7-8.2)
[2019-09-16 10:20] LABS: INR 2.2 (0.8-1.2); PT - PROTHROMBIN TIME 24.3 secs (9.9-12.6)
[2019-09-16] MEDS ORDERED: SODIUM CHLORIDE 0.9% 500 ML IV ONE (10:58)
[2019-09-16 12:06] LABS: BILIRUBIN,URINE NEGATIVE (NEGATIVE); GLUCOSE, URINE (UA) NEGATIVE (NEGATIVE); KETONES,URINE (UA) NEGATIVE (NEGATIVE); LEUKOCYTE ESTERASE, URINE NEGATIVE (NEGATIVE); NITRITE,URINE NEGATIVE (NEGATIVE); OCCULT BLOOD,URINE NEGATIVE (NEGATIVE); PROTEIN,URINE NEGATIVE (NEGATIVE); UROBILINOGEN,URINE 0.2 (NORMAL) E.U./dL (NORMAL)
[2019-09-16 12:14] LABS: CLARITY,URINE CLEAR (CLEAR)
[2019-09-16 12:36] VITALS: BP 122/84
== END 2019-09-16 13:45 | disposition home or self-care (01) ==
LOC: ED 09:17
DX: G40.909 Epilepsy, unspecified, not intractable, without status epilepticus (principal); G20 Parkinson's disease; Z86.718 Personal history of other venous thrombosis and embolism; Z86.711 Personal history of pulmonary embolism; Z79.01 Long term (current) use of anticoagulants
CPT/HCPCS: 36415; 80053; 81001; 81003; 83605; 83690; 84484; 85025; 85610; 87086; 93005; 96360; 99284

== ENCOUNTER 2019-10-08 09:36 | Outpatient (CLI) | payer MEDICARE | END 2019-10-08 09:37 | disposition EMS.NT | LOC: EMS 09:36 | PROVIDERS: ATTEND Surgery | DX: R55 Syncope and collapse (principal) ==

== ENCOUNTER 2019-11-28 09:20 | Outpatient (CLI) | payer MEDICARE | END 2019-11-28 09:21 | disposition EMS.NT | LOC: EMS 09:20 | PROVIDERS: ATTEND Surgery | DX: R56.9 Unspecified convulsions (principal) ==

== ENCOUNTER 2020-01-06 08:50 | Outpatient (CLI) | payer MEDICARE | END 2020-01-06 08:51 | disposition critical access hospital (66) | LOC: EMS 08:50 | PROVIDERS: ATTEND Surgery | DX: R55 Syncope and collapse (principal); R09.89 Other specified symptoms and signs involving the circulatory and respiratory systems | CPT/HCPCS: A0425; A0427 ==

== ENCOUNTER 2020-01-06 08:59 | Observation (INO) | payer MEDICARE ==
[2020-01-06] MEDS ORDERED: SODIUM CHLORIDE 0.9% 1,000 ML IV ONE (09:25)
--- NOTE | 2020-01-06 09:28 | ED Physician Documentation ---
History of Present Illness - Stated complaint Stated Complaint: AMS - Chief complaint Chief Complaint: Neuro - History obtained from History obtained from: Patient, EMS - Additonal information Additional information: Patient is brought to the emergency department by EMS after being noted at breakfast time to have a syncopal episode. Patient lives at home with his and apparently was sitting on a barstool when he suddenly lost consciousness. The patient's was right there and was able to hold him up while calling EMS. The patient had an approximately 10 to 15-minute period of unconsciousness which lasted until the medics arrived and were putting the patient into the ambulance. They state the patient was not conscious until that moment, but when he awoke, he seemed to be mentating completely normally. Patient does not remember the event. He does not remember feeling ill prior to the event. Medics state the did not note any seizure-like activity. The patient has a history of Parkinson's disease but is not on any new medications for this. He sometime ago, he was switched from gabapentin to Lyrica. He states he has been having telephone appointments with his neurologist and primary care physician but has not seen any of them in person recently, due to coronavirus. The patient states that he does not have any chest pain or shortness of breath. No nausea or vomiting. No abdominal pain. He has a slight "numb" feeling in his right lateral forehead, but states that this is not a pain. No other complaints at this time. The patient has been having absence seizure's or partial seizures for the last 6 months or so and neurologist is working him up for this at this time. The patient states he has chronic right-sided weakness which he believes is related to his Parkinson's. Review of Systems Ten Systems: 10 systems reviewed and negative Constitutional: reports: Reviewed and negative Eyes: reports: Reviewed and negative Ears: reports: Reviewed and negative Nose: reports: Reviewed and negative Throat: reports: Reviewed and negative Cardiac: reports: Reviewed and negative Respiratory: reports: Reviewed and negative GI: reports: Reviewed and negative : reports: Reviewed and negative Skin: reports: Reviewed and negative Musculoskeletal: reports: Reviewed and negative Neurologic: reports: Syncope Psychiatric: reports: Reviewed and negative Endocrine: reports: Reviewed and negative Immunocompromised: reports: Reviewed and negative PD PAST MEDICAL HISTORY - Past Medical History Cardiovascular: Deep vein thrombosis, Pulmonary embolism Respiratory: None Neuro: Parkinson's Endocrine/Autoimmune: None GI: Chronic constipation, Hemorrhoids : Benign prostate hypertrophy HEENT: Chronic vision loss Psych: None Musculoskeletal: Osteoarthritis, Chronic back pain Derm: None - Past Surgical History Past Surgical History: No General: Colonoscopy Ortho: Spine surgery - Present Medications Home Medications: Ambulatory Orders Medication Instructions Recorded Confirmed Warfarin Sodium [Coumadin] 2.5 mg PO SUTUWETHSA 04/15/13 01/06/20 clonazePAM [Clonazepam] 1 mg PO QPM PRN 04/15/13 01/06/20 Carbidopa/Levodopa 25/250 [Sinemet 1 each PO 5XD 10/01/13 01/06/20 25 mg/250 mg] Tamsulosin [Flomax] 0.4 mg PO QPM 10/01/13 01/06/20 polyethylene glycoL 3350 [Miralax] 17 gm PO DAILY PRN 05/30/17 01/06/20 DULoxetine [Cymbalta] 40 mg PO DAILY 01/06/20 01/06/20 Midodrine HCl 2.5 mg PO BIDWM 01/06/20 01/06/20 Pregabalin 225 mg PO BID 01/06/20 01/06/20 Warfarin Sodium 5 mg PO MOFR 01/06/20 01/06/20 levETIRAcetam [Levetiracetam] 1,500 mg PO BID 01/06/20 01/06/20 - Allergies Allergies/Adverse Reactions: Allergies Allergy/AdvReac Type Severity Reaction Status Date / Time No Known Drug Allergies Allergy Verified 09/16/19 09:28 - Social History Does the pt smoke?: No Smoking Status: Never smoker Does the pt drink ETOH?: No Does the pt have substance abuse?: No - Immunizations Immunizations are current?: Yes - POLST Patient has POLST: No PD ED PE NORMAL - Vitals Vital signs reviewed: Yes - General General: Alert and oriented X 3, No acute distress, Well developed/nourished - HEENT HEENT: Atraumatic, PERRL, EOMI, Moist mucous membranes - Neck Neck: Supple, no meningeal sign - Cardiac Cardiac: RRR, No murmur - Respiratory Respiratory: No respiratory distress, Clear bilaterally - Abdomen Abdomen: Soft, Non tender, Non distended - Derm Derm: Normal color, Warm and dry, No rash - Extremities Extremities: No deformity, No edema, No calf tenderness / cord - Neuro Neuro: Alert and oriented X 3, 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, Normal speech - Psych Psych: Normal mood, Normal affect Results - Vitals Vitals: Oxygen O2 Source Room air - EKG (time done) 0912 Rate: Rate (enter#) (59) Rhythm: NSR (59) [place]: Normal Intervals: Prolonged [place] (borderline) QRS: Normal Ischemia: Normal ST segments Compare to prior EKG: Old EKG unavailable Computer interpretation: Agree with computer - Labs Labs: Laboratory Tests 01/06/20 01/06/20 01/06/20 09:11 09:11 09:11 WBC 6.2 RBC 4.50 L Hgb 13.7 L Hct 42.9 MCV 95.3 H MCH 30.4 MCHC 31.9 L RDW 13.7 Plt Count 164 MPV 9.6 Neut # (Auto) 2.7 Lymph # (Auto) 2.8 [place] # (Auto) 0.6 Eos # (Auto) 0.1 Baso # (Auto) 0.0 Absolute Nucleated RBC 0.00 Nucleated RBC % 0.0 PT INR Sodium 140 Potassium 3.5 Chloride 108 Carbon Dioxide 26 Anion Gap 6.0 BUN 24 H Creatinine 1.0 Estimated GFR (MDRD) 75 L Glucose 103 H Calcium 8.2 L Total Bilirubin 0.7 AST 18 ALT < 10 L Alkaline Phosphatase 72 Troponin I High Sens 4.8 Total Protein 6.3 L Albumin 3.6 Globulin 2.7 Albumin/Globulin Ratio 1.3 Lipase 25 TSH 01/06/20 01/06/20 09:11 09:58 WBC RBC Hgb Hct MCV MCH MCHC RDW Plt Count MPV Neut # (Auto) Lymph # (Auto) [place] # (Auto) Eos # (Auto) Baso # (Auto) Absolute Nucleated RBC Nucleated RBC % PT 30.2 H INR 2.8 H Sodium Potassium Chloride Carbon Dioxide Anion Gap BUN Creatinine Estimated GFR (MDRD) Glucose Calcium Total Bilirubin AST ALT Alkaline Phosphatase Troponin I High Sens Total Protein Albumin Globulin Albumin/Globulin Ratio Lipase TSH 2.75 PD MEDICAL DECISION MAKING - ED course Complexity details: reviewed old records, reviewed results, re-evaluated patient, considered differential, d/w patient ED course: Patient was worked up with labs, EKG, chest x-ray, head CT, and given IV fluids. His workup was unremarkable. Given his prolonged syncopal episode, I felt he should be observed in the hospital. The episode was not typical of his seizures, according to report from his , so I felt this may be a separate problem. I spoke with Dr. Jordan, who was agreeable to admission. Departure - Departure Disposition: [facility] DC/Xfer Clinical Impression: Syncope Qualifiers: Syncope type: unspecified Qualified Code(s): R55 - Syncope and collapse Condition: Serious Discharge Date/Time: 01/06/20 12:19
[2020-01-06 09:31] LABS: BASOPHILS % (AUTO) 0.3 %; EOSINOPHILS # (AUTO) 0.1 10^3/uL (0.0-0.7); EOSINOPHILS % (AUTO) 2.1 %; HGB - HEMOGLOBIN 13.7 g/dL (14.0-18.0); LYMPHOCYTES # (AUTO) 2.8 10^3/uL (1.5-3.5); LYMPHOCYTES % (AUTO) 44.3 %; MEAN CORPUSCULAR HEMOGLOBIN 30.4 pg (27.0-31.0); MEAN CORPUSCULAR HGB CONC 31.9 g/dL (32.0-36.0); MEAN CORPUSCULAR VOLUME 95.3 fL (80.0-94.0); MEAN PLATELET VOLUME 9.6 fL (7.4-11.4); MONOCYTES # (AUTO) 0.6 10^3/uL (0.0-1.0); MONOCYTES % (AUTO) 9.2 %; NEUTROPHILS # (AUTO) 2.7 10^3/uL (1.5-6.6); NEUTROPHILS % (AUTO) 43.9 %; PLT - PLATELET COUNT 164 10^3/uL (130-450); RED CELL DISTRIBUTION WIDTH 13.7 % (12.0-15.0); WHITE BLOOD COUNT 6.2 x10^3/uL (4.8-10.8)
--- NOTE | 2020-01-06 09:48 | XRAY Report ---
Reason: Chest Pain Procedure Date: 01/06/2020 Accession Number: [id number] / [id number] Procedure: XR - Chest 1 View X-Ray CPT Code: 85197 Final Report FULL RESULT: EXAM: CHEST RADIOGRAPHY EXAM DATE: 01/06/2020 09:36 AM. CLINICAL HISTORY: Chest Pain. COMPARISON: [facility] W/PA CHEST RT 05/27/2019 12:20 PM. TECHNIQUE: 1 view. FINDINGS: Lungs/Pleura: No focal opacities evident. No pleural effusion. No pneumothorax. Mediastinum: Stable cardiomegaly. Ectatic aorta. Other: Thoracolumbar fusion. IMPRESSION: No active cardiopulmonary disease RADIA
--- NOTE | 2020-01-06 10:04 | CT Report ---
Reason: prolonged syncope Procedure Date: 01/06/2020 Accession Number: [id number] / [id number] Procedure: CT - HEAD WO CPT Code: Final Report FULL RESULT: EXAM: CT HEAD EXAM DATE: 01/06/2020 09:45 AM. CLINICAL HISTORY: Prolonged syncope. COMPARISON: HEAD W/O 02/03/2019 11:09 AM. TECHNIQUE: Multiaxial CT images were obtained from the foramen magnum to the vertex. Reformats: Sagittal and coronal. IV contrast: None. In accordance with CT protocol optimization, one or more of the following dose reduction techniques were utilized for this exam: automated exposure control, adjustment of mA and/or KV based on patient size, or use of iterative reconstructive technique. FINDINGS: Parenchyma: No intraparenchymal hemorrhage. No evidence of mass, midline shift, or CT findings of infarction. Morales-white differentiation is distinct. Extraaxial Spaces: No extra-axial hemorrhage. Mild prominence of the sulci in keeping with mild volume loss. Ventricles: Normal in size and position. Sinuses and Orbits: Imaged paranasal sinuses, orbits, and mastoids show no significant abnormality. Bones: No evidence of fracture or calvarial defect. Other: None. IMPRESSION: Mild volume loss. No acute intracranial hemorrhage. RADIA
[2020-01-06 10:17] LABS: INR 2.8 (0.8-1.2); PT - PROTHROMBIN TIME 30.2 secs (9.9-12.6)
[2020-01-06] MEDS ORDERED: SODIUM CHLORIDE FLUSH 0.9% 10 ML SYRINGE IVP PRN (11:24)
[2020-01-06 11:35] LABS: ALBUMIN 3.6 g/dL (3.2-5.5); ALBUMIN/GLOBULIN RATIO 1.3 (1.0-2.2); ALKALINE PHOSPHATASE 72 IU/L (42-121); ALT ALANINE AMINOTRANSFERASE < 10 IU/L (10-60); AST ASPARTATE AMINOTRANSFERASE 18 IU/L (10-42); BILIRUBIN,TOTAL 0.7 mg/dL (0.2-1.0); BUN - BLOOD UREA NITROGEN 24 mg/dL (6-20); CALCIUM 8.2 mg/dL (8.5-10.3); CARBON DIOXIDE - CO2 26 mmol/L (21-32); CHLORIDE 108 mmol/L (101-111); GLUCOSE 103 mg/dL (70-100); LIPASE 25 U/L (22-51); SODIUM 140 mmol/L (135-145); TOTAL PROTEIN 6.3 g/dL (6.7-8.2)
[2020-01-06] MEDS ORDERED: MIDODRINE 2.5 MG TABLET PO SCH (13:15)
[2020-01-06] MEDS ORDERED: CARBIDOPA/LEVODOPA 25 MG/250 MG TABLET PO SCH (14:00)
--- NOTE | 2020-01-06 14:10 | PHARMACY PROGRESS NOTE ---
- Best Possible Medication History Admit Date and Time: 01/06/20 1118 Processed by: Pharmacy Medication History completed: Yes Secondary Source(s): Physician records, Pharmacy records, Insurance records As the person ultimately responsible for medication therapy, providers are able to order a medication from an existing home medication list in [facility] via the "Reconcile Routine" prior to Confirmation of that medication by child support agent. Such practice is discouraged except when the physician, in their clinical judgment, deems that a medical need exists for a medication without regard to previous use.
--- NOTE | 2020-01-06 16:04 | DISCHARGE SUMMARY ---
Discharge Summary Admit Date: 01/06/20 Discharge Date: 01/06/20 Discharging Provider: Dr Aiyana Canseco Primary Care Provider: Dr Umer Ureña Code Status: Attempt Resuscitation Condition at Discharge: Serious Discharge Disposition: 02 Transfer Acute Care Hosp Discharge Facility Name: [facility] History of Present Illness: This is a 69-year-old man with a history of seizures being worked up by [place] neurology, history of Parkinson's disease with orthostatic hypotension and multiple episodes of syncope. The patient was started on Midrin during an admission here about 2-1/2 years ago. 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 He has had addition or increase of the Lyrica dose recently. Today while sitting at the breakfast bar at his house he had a syncopal episode and dropped his head onto the counter, the was able to support him as she called 911. The EMS personnel arrived and found him to be unconscious but had a pulse and was breathing and he awoke during transport to the ER, in the ambulance. He did not remember the event, was not postictal though. He had no prodrome or warning that this was to happen. He is being admitted for work-up of recurrent syncope. - HOSPITAL COURSE Hospital Course: 1) Seizure. As the patient was being admitted to his Observation bed, I received a call from his [place] Neurologist, Dr. Jenise Wilks who said that she heard of the patient's presentation from the speaking to her by phone today. Dr. Wilks was considering that the recently higher Lyrica dose was dropping his seizure threshold and advised that the patient should be transferred to a facility with higher level of care, that has Neurology specialists available, and has continuous EEG monitoring available. His [place] health insurance was contacted who approved the transfer and arranged for him to be accepted at [facility], where he was transferred in stable condition. 2) Syncope. We started the work-up for syncope here which included a set of orthostatic vital signs (see below). He also underwent a resting Echo at bedside that showed normal LV and RV sizes, normal LVEF of 65%, normal diastolic function, mild tricuspid regurgitation, normal PA pressure of 32 mmHg. A "bubble" study was done that showed no shunt at the inter-atrial septal level. 3) Orthostatic hypotension He did have a set of orthostatic vital signs done that showed significant drop in systolic blood pressure of 60 mmHg. I discussed this with the (by phone), who stated that it has been this serious for many months, and that the Midodrin dose is being adjusted by his Neurologist downward, presumably due to supine HTN. 4) Prerenal azotemia. The plan was to be to start gentle hydration and lab monitoring. 5) Parkinson's Disease He was kept on his same Parkinsons med doses while here. 6) Factor V Leiden mutation. His INR was therapeutic at 2.8. The plan was to continue Coumadin at the same doses. - ALLERGIES Allergies/Adverse Reactions: Allergies Allergy/AdvReac Type Severity Reaction Status Date / Time No Known Drug Allergies Allergy Verified 09/16/19 09:28 - MEDICATIONS Home Medications: Ambulatory Orders Medication Instructions Recorded Confirmed Warfarin Sodium [Coumadin] 2.5 mg PO SUTUWETHSA 04/15/13 01/06/20 clonazePAM [Clonazepam] 1 mg PO QPM PRN 04/15/13 01/06/20 Carbidopa/Levodopa 25/250 [Sinemet 1 each PO 5XD 10/01/13 01/06/20 25 mg/250 mg] Tamsulosin [Flomax] 0.4 mg PO QPM 10/01/13 01/06/20 polyethylene glycoL 3350 [Miralax] 17 gm PO DAILY PRN 05/30/17 01/06/20 DULoxetine [Cymbalta] 40 mg PO DAILY 01/06/20 01/06/20 Midodrine HCl 2.5 mg PO BIDWM 01/06/20 01/06/20 Pregabalin 225 mg PO BID 01/06/20 01/06/20 Warfarin Sodium 5 mg PO MOFR 01/06/20 01/06/20 levETIRAcetam [Levetiracetam] 1,500 mg PO BID 01/06/20 01/06/20 - PHYSICAL EXAM AT DISCHARGE General Appearance: positive: No acute distress, Alert, Other (Flat facies and bradykinetic/stiff.) Eyes Bilateral: positive: Normal inspection, EOMI ENT: positive: No signs of dehydration, Other (Red, flushed cheeks) Neck: positive: Nml inspection, No JVD Respiratory: positive: No respiratory distress Cardiovascular: positive: Regular rate & rhythm, No murmur Abdomen: positive: Non-tender, No distention Skin: positive: Other (Flushed appearing) Extremities: positive: No pedal edema Neurologic/Psychiatric: positive: Oriented x3, Other (Stiff, no tremor noted) - LABS Result Diagrams: 01/06/20 09:11 01/06/20 09:11 - DIAGNOSTIC IMAGING Diagnostic Imaging Results: Final report reviewed - FOLLOW UP Follow Up: Will be determined after his hospitalization at [facility]. - TIME SPENT Time Spent in Discharge (Minutes): 35
--- NOTE | 2020-01-06 16:04 | Discharge Plan ---
Discharge Plan Problem Reviewed?: Yes Disposition: 02 Transfer Acute Care Hosp Condition: Serious No Smoking: If you smoke, Please STOP! Call for help. Follow-up with: Umer Ureña MD [Primary Care Provider] -
--- NOTE | 2020-01-06 16:24 | HISTORY & PHYSICAL EXAMINATION ---
DATE OF SERVICE: 01/06/2020 Physician: Aiyana Canseco MD HISTORY OF PRESENT ILLNESS: This is a 69-year-old, white male with a history of Parkinson disease of early age onset, orthostatic hypotension, seizure disorder which is being worked up by Neurology through his [place] neurologist. The patient was admitted here in May 2017 with a seizure versus syncopal event and was found to be orthostatic. He was started on Midodrine. Over that time, he has had multiple episodes of syncope versus seizures and has had a neurology workup starting only this year, according to our records. This morning, while sitting, he had an episode of loss of motor tone and dropping his head down to the table, was incontinent, and his was able to "support him" while she called 911 and, when EMS arrived, he was unconscious and then awoke on his way into the emergency room. He had no memory of the event and told the ER that he did not have any precipitating symptoms. The patient is being admitted for evaluating another episode of syncope. PAST MEDICAL HISTORY: Seizure disorder, specifics are unknown; Parkinson disease, orthostatic hypotension, Factor V Leiden mutation with prior PE. ALLERGIES: NONE. MEDICATIONS 1. Clonazepam p.r.n. 2. Cymbalta 40 mg daily. 3. Keppra 1500 mg b.i.d. 4. Midodrine 2.5 mg b.i.d. 5. Carbidopa/levodopa 25/250 mg 5 times a day. 6. Warfarin 5 mg on Thursday and Thursday, then 2.5 mg the other days. 7. Flomax 0.4 mg every night. 8. Pregabalin 225 mg b.i.d. 9. MiraLax. FAMILY HISTORY: No inherited diseases. SOCIAL HISTORY: The patient lives with his . He no longer drives. He does not smoke cigarettes, use marijuana or drink any alcohol. REVIEW OF SYSTEMS: There have been no recent fevers, no cardiopulmonary complaints. The patient describes that he has retained ankle fluid ever since his diuretic was stopped several years ago, but that when he raises his legs the edema resolves. A comprehensive review of systems was performed and the pertinent positives are listed above, the rest are negative. PHYSICAL EXAMINATION GENERAL: White male, who is lying supine in bed and appears comfortable. He does have a flat affect and flat facies. He is in no distress. VITAL SIGNS: Blood pressure 150/90 supine. Then, when orthostatic vital signs were checked, his supine blood pressure was 183/95, sitting 166/94, standing 124/72. The pulse went from 66-69-82 in sinus rhythm. He is afebrile. room air saturation 99%. HEENT: Shows moist oral mucosa. He has very flushed cheeks. NECK: No JVD. No carotid bruits. CHEST: Clear. HEART: Without murmur. ABDOMEN: Soft, nontender. Normal bowel sounds. EXTREMITIES: No clubbing, cyanosis, or edema. NEUROLOGIC: Flat affect, bradykinesis, currently no tremor. LABORATORY DATA: Normal electrolytes. BUN is 24, creatinine 1.0. Normal liver tests. Normal TSH. White blood count 6.2, hemoglobin 13.7, platelet count 164. INR 2.8 (patient is on Coumadin). IMAGING: Chest x-ray: No active cardiopulmonary disease. CT of the head: Mild encephalomalacia, but no acute findings. EKG: Normal sinus rhythm, rate 60, first-degree AV block, rare PVC, otherwise within normal limits. IMPRESSION/DIAGNOSES 1. Seizure. 2. Syncope. 3. Orthostatic hypotension. 4. Prerenal azotemia. 5. Parkinson disease. 6. History of factor V Leiden abnormality with prior PE and on lifelong Coumadin. PLAN: Admit the patient to Observation status for syncope evaluation with adjustment of medications for orthostasis, possible hydration gently for the same and prerenal azotemia, and obtain an Echo. As the patient was being placed in his bed in Observation, I got a call from his [place] Neurologist, Dr. Jenise Wilks, who described to me more of today's events. The had called Dr. Wilks and discussed that, separately from our emergency room evaluation. Dr. Wilks thought that the event was a seizure, probably brought on by an increased dose of Lyrica recently. Dr. Wilks wants the patient to be transferred to a hospital with a higher level of care, where Neurology is present and EEG monitoring is possible. The plan will therefore be for transfer, contacting [facility] to approve his transfer to a different hospital for the above. I told the patient this plan and he is agreeable. I spoke to the twice about this plan by phone. DEEP VENOUS THROMBOSIS PROPHYLAXIS: SCDs and pharmacotherapy. CODE STATUS: FULL CODE. ATTESTATION: The patient is expected to be discharged or transferred to another facility within 96 hours: Yes. cc: Umer Ureña MD TD: 01/06/2020 15:53 MTDD
[2020-01-06] MEDS ORDERED: SODIUM CHLORIDE FLUSH 0.9% 10 ML SYRINGE IVP SCH (17:00)
[2020-01-06 17:20] VITALS: BP 166/90
[2020-01-06] MEDS ORDERED: PREGABALIN 100 MG CAPSULE PO SCH (21:00)
[2020-01-06] MEDS ORDERED: FAMOTIDINE 20 MG TABLET PO SCH (21:00)
[2020-01-06] MEDS ORDERED: PREGABALIN 25 MG CAPSULE PO SCH (21:00)
== END 2020-01-06 16:46 | disposition short-term general hospital (02) ==
LOC: EDUNIT# → ED 08:59 → MS2 11:18
PROVIDERS: ADMIT Internal Medicine; ATTEND Internal Medicine
DX: G40.909 Epilepsy, unspecified, not intractable, without status epilepticus (principal); R55 Syncope and collapse; R79.89 Other specified abnormal findings of blood chemistry; G20 Parkinson's disease; D68.51 Activated protein C resistance; Z86.711 Personal history of pulmonary embolism; Z79.01 Long term (current) use of anticoagulants; Z79.899 Other long term (current) drug therapy
CPT/HCPCS: 36415; 70450; 71045; 80053; 83690; 84443; 84484; 85025; 85610; 93005; 93306; 99285; A9270; G0378

== ENCOUNTER 2020-01-06 16:52 | Outpatient (CLI) | payer MEDICARE | END 2020-01-06 16:53 | disposition short-term general hospital (02) | LOC: EMS 16:52 | PROVIDERS: ATTEND Surgery | DX: R56.9 Unspecified convulsions (principal); R55 Syncope and collapse; G20 Parkinson's disease; I95.1 Orthostatic hypotension | CPT/HCPCS: A0425; A0428 ==

== ENCOUNTER 2020-06-13 07:53 | Emergency (ER) | payer MEDICARE ==
[2020-06-13 08:27] LABS: BASOPHILS % (AUTO) 0.4 %; EOSINOPHILS # (AUTO) 0.2 10^3/uL (0.0-0.7); EOSINOPHILS % (AUTO) 2.4 %; HGB - HEMOGLOBIN 14.3 g/dL (14.0-18.0); LYMPHOCYTES # (AUTO) 2.3 10^3/uL (1.5-3.5); LYMPHOCYTES % (AUTO) 32.3 %; MEAN CORPUSCULAR HEMOGLOBIN 30.9 pg (27.0-31.0); MEAN CORPUSCULAR HGB CONC 32.9 g/dL (32.0-36.0); MEAN PLATELET VOLUME 9.4 fL (7.4-11.4); MONOCYTES # (AUTO) 0.9 10^3/uL (0.0-1.0); MONOCYTES % (AUTO) 12.1 %; NEUTROPHILS # (AUTO) 3.8 10^3/uL (1.5-6.6); NEUTROPHILS % (AUTO) 52.5 %; PLT - PLATELET COUNT 163 10^3/uL (130-450); RED BLOOD COUNT 4.63 10^6/uL (4.70-6.10); RED CELL DISTRIBUTION WIDTH 13.7 % (12.0-15.0); WHITE BLOOD COUNT 7.2 x10^3/uL (4.8-10.8)
--- NOTE | 2020-06-13 08:30 | XRAY Report ---
PROCEDURE: Chest 1 View X-Ray INDICATIONS: Cough TECHNIQUE: One view of the chest was acquired. COMPARISON: 01/06/2020 FINDINGS: Surgical changes and devices: None. Lungs and pleura: No pleural effusions or pneumothorax. Lungs are clear. Mediastinum: Mediastinal contours appear normal. Heart size is normal. Bones and chest wall: No suspicious bony lesions. Overlying soft tissues appear unremarkable. IMPRESSION: No acute cardiopulmonary process. Reviewed by: Jose Manuel Baxter MD on 06/13/2020 8:29 AM PDT Approved by: Jose Manuel Baxter MD on 06/13/2020 8:29 AM PDT Station ID: [id number]
[2020-06-13 08:38] LABS: CREATININE 1.1 mg/dL (0.6-1.2)
[2020-06-13 08:39] LABS: INR 2.6 (0.8-1.2); PT - PROTHROMBIN TIME 27.2 secs (9.9-12.6)
[2020-06-13] MEDS ORDERED: ALBUTEROL NEB 2.5 MG/3 ML INH STA (08:53)
--- NOTE | 2020-06-13 08:55 | ED Physician Documentation ---
PD HPI DYSPNEA - Stated complaint Stated Complaint: COUGH - Chief complaint Chief Complaint: Resp - History obtained from History obtained from: Patient, Family () - Additional information Additional information: 3 nights ago he was taking his pills and chokes and feels like he aspirated and has had a persistent cough since with out shortness of breath or fevers. Review of Systems Constitutional: denies: Fever, Chills Cardiac: denies: Chest pain / pressure, Palpitations Respiratory: reports: Wheezing. denies: Dyspnea PD PAST MEDICAL HISTORY - Past Medical History Past Medical History: Yes Cardiovascular: Deep vein thrombosis, Pulmonary embolism Respiratory: None Neuro: Parkinson's Endocrine/Autoimmune: None GI: Chronic constipation, Hemorrhoids : Benign prostate hypertrophy HEENT: Chronic vision loss Psych: None Musculoskeletal: Osteoarthritis, Chronic back pain Derm: None - Past Surgical History Past Surgical History: No General: Colonoscopy Ortho: Spine surgery - Present Medications Home Medications: Ambulatory Orders Medication Instructions Recorded Confirmed Warfarin Sodium [Coumadin] 2.5 mg PO SUTUWETHSA 04/15/13 01/06/20 clonazePAM [Clonazepam] 1 mg PO QPM PRN 04/15/13 01/06/20 Carbidopa/Levodopa 25/250 [Sinemet 1 each PO 5XD 10/01/13 01/06/20 25 mg/250 mg] Tamsulosin [Flomax] 0.4 mg PO QPM 10/01/13 01/06/20 polyethylene glycoL 3350 [Miralax] 17 gm PO DAILY PRN 05/30/17 01/06/20 DULoxetine [Cymbalta] 40 mg PO DAILY 01/06/20 01/06/20 Midodrine HCl 2.5 mg PO BIDWM 01/06/20 01/06/20 Pregabalin 225 mg PO BID 01/06/20 01/06/20 Warfarin Sodium 5 mg PO MOFR 01/06/20 01/06/20 levETIRAcetam [Levetiracetam] 1,500 mg PO BID 01/06/20 01/06/20 Albuterol Sulf [Ventolin Hfa 1 - 2 puffs INH Q4HR PRN #1 inhaler 06/13/20 Inhaler] Benzonatate [Tessalon Perle] 100 - 200 mg PO TID PRN #30 capsule 06/13/20 predniSONE [Deltasone] 60 mg PO DAILY 5 Days #15 tablet 06/13/20 - Allergies Allergies/Adverse Reactions: Allergies Allergy/AdvReac Type Severity Reaction Status Date / Time No Known Drug Allergies Allergy Verified 06/13/20 08:11 - Social History Does the pt smoke?: No Smoking Status: Never smoker Does the pt drink ETOH?: No Does the pt have substance abuse?: No - Immunizations Immunizations are current?: Yes - POLST Patient has POLST: No PD ED PE NORMAL - Vitals Vital signs reviewed: Yes - General General: Alert and oriented X 3, No acute distress - HEENT HEENT: PERRL - Neck Neck: Supple, no meningeal sign, No bony TTP - Cardiac Cardiac: RRR, No murmur - Respiratory Respiratory: No respiratory distress, Other (Diffusely wheezy, nonlabored) - Extremities Extremities: No edema, No calf tenderness / cord - Neuro Neuro: Normal speech Results - Vitals Vitals: Vital Signs - 24 hr 06/13/20 08:02 Temperature 36.6 C Heart Rate 78 Respiratory 19 Rate Blood Pressure 100/68 O2 Saturation 96 Oxygen O2 Source Room air - Labs Labs: Laboratory Tests 06/13/20 06/13/20 06/13/20 08:24 08:24 08:24 WBC 7.2 RBC 4.63 L Hgb 14.3 Hct 43.5 MCV 94.0 MCH 30.9 MCHC 32.9 RDW 13.7 Plt Count 163 MPV 9.4 Neut # (Auto) 3.8 Lymph # (Auto) 2.3 [place] # (Auto) 0.9 Eos # (Auto) 0.2 Baso # (Auto) 0.0 Absolute Nucleated RBC 0.00 Nucleated RBC % 0.0 PT 27.2 H INR 2.6 H Sodium 143 Potassium 3.9 Chloride 108 Carbon Dioxide 26 Anion Gap 9.0 BUN 29 H Creatinine 1.1 Estimated GFR (MDRD) 67 L Glucose 92 Calcium 9.0 - Rads (name of study) 1v CHEST Radiology: EMP read contemporaneously (normal) PD MEDICAL DECISION MAKING - ED course ED course: 70-year-old gentleman presents 3 days after an episode of aspiration with pe rsistent cough. No evidence of pneumonia or infection. He is wheezy and is treated for aspiration pneumonitis with beta agonist, steroids, and Tessalon. Departure - Departure Disposition: 01 Home, Self Care Clinical Impression: Adequate anticoagulation on anticoagulant therapy, Aspiration pneumonitis Condition: Good Record reviewed to determine appropriate education?: Yes Prescriptions: Albuterol Sulf [Ventolin Hfa Inhaler] 1 - 2 puffs INH Q4HR PRN #1 inhaler PRN Reason: Shortness Of Air/Wheezing predniSONE [Deltasone] 60 mg PO DAILY 5 Days #15 tablet Benzonatate [Tessalon Perle] 100 - 200 mg PO TID PRN #30 capsule PRN Reason: Cough Comments: You were seen today for persistent cough after AN episode of aspiration. Chest x-ray looks good. Labs are normal, INR is 2.6. This is all consistent with an episode of aspiration pneumonitis, return if worsening or if you develop a fever or significant shortness of breath. Otherwise the inhaler and steroids should help. The other medication is for cough as needed. Prescriptions were sent electronically to [facility] in [place].
[2020-06-13 09:34] VITALS: BP 133/88
== END 2020-06-13 09:35 | disposition home or self-care (01) ==
LOC: ED 07:53
DX: J69.8 Pneumonitis due to inhalation of other solids and liquids (principal); G20 Parkinson's disease; Z86.718 Personal history of other venous thrombosis and embolism; Z86.711 Personal history of pulmonary embolism; Z79.01 Long term (current) use of anticoagulants
CPT/HCPCS: 36415; 71045; 80048; 85025; 85610; 94640; 94664; 99283; 99284

== ENCOUNTER 2020-08-30 19:29 | Outpatient (CLI) | payer MEDICARE | END 2020-08-30 19:30 | disposition critical access hospital (66) | LOC: EMS 19:29 | PROVIDERS: ATTEND Surgery | DX: R55 Syncope and collapse (principal); R03.1 Nonspecific low blood-pressure reading; R53.1 Weakness; R42 Dizziness and giddiness | CPT/HCPCS: A0425; A0427 ==

== ENCOUNTER 2020-08-30 19:45 | Emergency (ER) | payer MEDICARE ==
--- NOTE | 2020-08-30 20:09 | XRAY Report ---
PROCEDURE: Chest 1 View X-Ray INDICATIONS: Chest Pain TECHNIQUE: One view of the chest was acquired. COMPARISON: 06/13/2020 FINDINGS: Surgical changes and devices: None. Lungs and pleura: No pleural effusions or pneumothorax. Mild pulmonary vascular congestion is seen. No focal infiltrate. Mediastinum: Mediastinal contours appear normal. Heart size is enlarged. Bones and chest wall: No suspicious bony lesions. Overlying soft tissues appear unremarkable. IMPRESSION: Cardiomegaly and mild congestion. No focal infiltrate, pleural effusion or pneumothorax. Reviewed by: Jorge Ordoñez MD on 08/30/2020 8:08 PM PST Approved by: Jorge Ordoñez MD on 08/30/2020 8:08 PM [facility] Station ID: [id number]
--- NOTE | 2020-08-30 20:12 | ED Physician Documentation ---
History of Present Illness - Stated complaint Stated Complaint: Syncope - Chief complaint Chief Complaint: Neuro - History obtained from History obtained from: Patient, EMS - History of Present Illness Timing: Today Pain level max: 0 Pain level now: 0 - Additonal information Additional information: Patient is a 70-year-old male who presents to the emergency department after a syncopal unresponsive episode today. It lasted about 15 to 20 minutes. This is a chronic ongoing issue for the patient. He has been worked up for seizures, but this does not appear to be seizure related. They think this is due to orthostatic hypotension. He is on Midrin currently. They think that the symptoms may be worsened by his Parkinson's and the levodopa. He states he has not missed any doses of his medications. Currently feels normal. Was hypotensive with EMS initially been given IV fluids. No head injury. His was with him and lowered him to the ground. Nothing makes it better or worse. Review of Systems Constitutional: denies: Fever, Chills Respiratory: denies: Cough GI: denies: Vomiting, Diarrhea Skin: denies: Rash Musculoskeletal: denies: Neck pain, Back pain Neurologic: denies: Headache PD PAST MEDICAL HISTORY - Past Medical History Cardiovascular: Deep vein thrombosis, Pulmonary embolism Respiratory: None Neuro: Parkinson's Endocrine/Autoimmune: None GI: Chronic constipation, Hemorrhoids : Benign prostate hypertrophy HEENT: Chronic vision loss Psych: None Musculoskeletal: Osteoarthritis, Chronic back pain Derm: None - Past Surgical History Past Surgical History: No General: Colonoscopy Ortho: Spine surgery - Present Medications Home Medications: Ambulatory Orders Medication Instructions Recorded Confirmed Warfarin Sodium [Coumadin] 2.5 mg PO SUTUWETHSA 04/15/13 08/30/20 clonazePAM [Clonazepam] 1 mg PO QPM PRN 04/15/13 08/30/20 Carbidopa/Levodopa 25/250 [Sinemet 1 each PO 5XD 10/01/13 08/30/20 25 mg/250 mg] Tamsulosin [Flomax] 0.4 mg PO QPM 10/01/13 08/30/20 polyethylene glycoL 3350 [Miralax] 17 gm PO DAILY PRN 05/30/17 08/30/20 Midodrine HCl 2.5 mg PO BIDWM 01/06/20 08/30/20 Pregabalin 225 mg PO BID 01/06/20 08/30/20 Warfarin Sodium 5 mg PO MOFR 01/06/20 08/30/20 levETIRAcetam [Levetiracetam] 1,500 mg PO BID 01/06/20 08/30/20 Albuterol Sulf [Ventolin Hfa 1 - 2 puffs INH Q4HR PRN #1 inhaler 06/13/20 08/30/20 Inhaler] Baclofen 5 mg PO TID 08/30/20 08/30/20 Docusate Sodium [Dulcolax Stool 100 mg PO BID 08/30/20 08/30/20 Softener] Folic Acid/Vit B Complex and C 400 mcg PO DAILY 08/30/20 08/30/20 [B-Complex with Vit C Tablet] Midodrine 2.5 mg PO TID 08/30/20 08/30/20 Pregabalin [Lyrica] 225 mg PO BID 08/30/20 08/30/20 - Allergies Allergies/Adverse Reactions: Allergies Allergy/AdvReac Type Severity Reaction Status Date / Time No Known Drug Allergies Allergy Verified 08/30/20 19:47 - Social History Does the pt smoke?: No Smoking Status: Never smoker Does the pt drink ETOH?: No Does the pt have substance abuse?: No - Immunizations Immunizations are current?: Yes - POLST Patient has POLST: No PD ED PE NORMAL - Vitals Vital signs reviewed: Yes - General General: Alert and oriented X 3, No acute distress - HEENT HEENT: Atraumatic, PERRL, Ears normal, Moist mucous membranes, Pharynx benign - Neck Neck: Supple, no meningeal sign - Cardiac Cardiac: RRR - Respiratory Respiratory: No respiratory distress, Clear bilaterally - Abdomen Abdomen: Soft, Non tender, Non distended - Back Back: No spinal TTP - Derm Derm: Warm and dry - Extremities Extremities: Normal ROM s pain - Neuro Neuro: Alert and oriented X 3, supportability engineer 2-12 intact, No motor deficit, No sensory deficit, Normal speech Eye Opening: Spontaneous Motor: Obeys Commands Verbal: Oriented GCS Score: 15 - Psych Psych: Normal mood, Normal affect Results - Vitals Vitals: Vital Signs - 24 hr 08/30/20 08/30/20 08/30/20 19:47 20:05 20:18 Temperature 36.0 C L Heart Rate 70 64 Heart Rate [ 63 Sitting] Heart Rate [ 78 Standing] Heart Rate [ 66 Supine] Respiratory 18 17 Rate Blood Pressure 126/80 126/86 H Blood Pressure 102/76 [Sitting] Blood Pressure 100/67 [Standing] Blood Pressure 129/81 H [Supine] O2 Saturation 97 100 08/30/20 08/30/20 20:56 21:28 Temperature Heart Rate 62 Heart Rate [ Sitting] Heart Rate [ Standing] Heart Rate [ Supine] Respiratory 15 16 Rate Blood Pressure 123/81 H Blood Pressure [Sitting] Blood Pressure [Standing] Blood Pressure [Supine] O2 Saturation 100 Oxygen O2 Source Room air - EKG (time done) 1940 Rate: Rate (enter#) (63) Rhythm: NSR [place]: Normal Intervals: Normal [place] QRS: Normal Ischemia: Normal ST segments - Labs Labs: Laboratory Tests 08/30/20 08/30/20 08/30/20 20:35 20:35 20:35 WBC 6.8 RBC 4.53 L Hgb 13.6 L Hct 44.3 MCV 97.8 H MCH 30.0 MCHC 30.7 L RDW 13.7 Plt Count 180 MPV 9.5 Neut # (Auto) 4.4 Lymph # (Auto) 1.6 [place] # (Auto) 0.7 Eos # (Auto) 0.1 Baso # (Auto) 0.0 Absolute Nucleated RBC 0.00 Nucleated RBC % 0.0 PT INR Sodium 141 Potassium 3.9 Chloride 104 Carbon Dioxide 30 Anion Gap 7.0 BUN 25 H Creatinine 1.3 H Estimated GFR (MDRD) 55 L Glucose 129 H Calcium 9.0 Total Bilirubin 0.6 AST 18 ALT < 10 L Alkaline Phosphatase 64 Troponin I High Sens 3.9 Total Protein 6.6 L Albumin 3.9 Globulin 2.7 Albumin/Globulin Ratio 1.4 Lipase 27 08/30/20 20:35 WBC RBC Hgb Hct MCV MCH MCHC RDW Plt Count MPV Neut # (Auto) Lymph # (Auto) [place] # (Auto) Eos # (Auto) Baso # (Auto) Absolute Nucleated RBC Nucleated RBC % PT 30.1 H INR 2.9 H Sodium Potassium Chloride Carbon Dioxide Anion Gap BUN Creatinine Estimated GFR (MDRD) Glucose Calcium Total Bilirubin AST ALT Alkaline Phosphatase Troponin I High Sens Total Protein Albumin Globulin Albumin/Globulin Ratio Lipase - Rads (name of study) cxr Radiology: Prelim report reviewed, EMP read contemporaneously, See rad report (Cardiomegaly and mild congestion. No focal infiltrate, pleural effusion or pneumothorax. ) PD MEDICAL DECISION MAKING - ED course Complexity details: reviewed old records, reviewed results, re-evaluated patient, considered differential, d/w patient, d/w mental health consultant ED course: Patient with recurrent orthostatic hypotension. Given IV fluids. Discussed the case with neurology, Dr. Wang who is on-call for the patient's neurologist. They recommend increasing the midodrine to 5 mg in the morning, followed by 2.5 mg twice more in the day. Total of 10 mg for the day. He is currently on 2.5 mg 3 times daily. Patient is asymptomatic here. We will have him follow-up with his neurologist on Thursday for further evaluation. Patient counseled regarding signs and symptoms for which I believe and urgent re-evaluation would be necessary. Patient with good understanding of and agreement to plan and is comfortable going home at this time This document was made in part using voice recognition software. While efforts are made to proofread this document, sound alike and grammatical errors may occur. Departure - Departure Disposition: 01 Home, Self Care Clinical Impression: Syncope due to orthostatic hypotension Condition: Good Instructions: ED Hypotension Orthostatic Follow-Up: KALINA AVENDANO MD [Primary Care Provider] - AQUILINO TUCKER MD [Physician No Access] - 09/03/20 Comments: I spoke with Dr. Felipe ponce, on-call for Dr. Tucker. He recommends increasing the midodrine to 5 mg in the morning and then 2.5 mg afternoon and evening. This would be 2 pills in the morning and 1 pill in the afternoon and evening. He recommends calling the clinic Thursday after 11 AM if you do not hear from them before that to talk to Dr. Tucker. Return if you worsen. Discharge Date/Time: 08/30/20 21:30
[2020-08-30] MEDS ORDERED: SODIUM CHLORIDE 0.9% 1,000 ML IV STA (20:13)
[2020-08-30 20:41] LABS: BASOPHILS % (AUTO) 0.4 %; EOSINOPHILS # (AUTO) 0.1 10^3/uL (0.0-0.7); EOSINOPHILS % (AUTO) 1.5 %; HCT - HEMATOCRIT 44.3 % (42.0-52.0); HGB - HEMOGLOBIN 13.6 g/dL (14.0-18.0); LYMPHOCYTES # (AUTO) 1.6 10^3/uL (1.5-3.5); LYMPHOCYTES % (AUTO) 23.1 %; MEAN CORPUSCULAR HGB CONC 30.7 g/dL (32.0-36.0); MEAN CORPUSCULAR VOLUME 97.8 fL (80.0-94.0); MEAN PLATELET VOLUME 9.5 fL (7.4-11.4); MONOCYTES # (AUTO) 0.7 10^3/uL (0.0-1.0); NEUTROPHILS # (AUTO) 4.4 10^3/uL (1.5-6.6); NEUTROPHILS % (AUTO) 64.7 %; PLT - PLATELET COUNT 180 10^3/uL (130-450); RED BLOOD COUNT 4.53 10^6/uL (4.70-6.10); RED CELL DISTRIBUTION WIDTH 13.7 % (12.0-15.0); WHITE BLOOD COUNT 6.8 x10^3/uL (4.8-10.8)
[2020-08-30 20:50] LABS: INR 2.9 (0.8-1.2); PT - PROTHROMBIN TIME 30.1 secs (9.9-12.6)
[2020-08-30 20:55] LABS: ALBUMIN 3.9 g/dL (3.2-5.5); ALBUMIN/GLOBULIN RATIO 1.4 (1.0-2.2); ALKALINE PHOSPHATASE 64 IU/L (42-121); ALT ALANINE AMINOTRANSFERASE < 10 IU/L (10-60); AST ASPARTATE AMINOTRANSFERASE 18 IU/L (10-42); BILIRUBIN,TOTAL 0.6 mg/dL (0.2-1.0); BUN - BLOOD UREA NITROGEN 25 mg/dL (6-20); CARBON DIOXIDE - CO2 30 mmol/L (21-32); CHLORIDE 104 mmol/L (101-111); CREATININE 1.3 mg/dL (0.6-1.2); GFR - MDRD 55 (>89); GLUCOSE 129 mg/dL (70-100); LIPASE 27 U/L (22-51); POTASSIUM 3.9 mmol/L (3.5-5.0); SODIUM 141 mmol/L (135-145); TOTAL PROTEIN 6.6 g/dL (6.7-8.2)
[2020-08-30 20:58] VITALS: BP 123/81
== END 2020-08-30 21:30 | disposition home or self-care (01) ==
LOC: EDUNIT# → ED 19:45
DX: I95.1 Orthostatic hypotension (principal); G20 Parkinson's disease; Z86.718 Personal history of other venous thrombosis and embolism; Z86.711 Personal history of pulmonary embolism; Z79.01 Long term (current) use of anticoagulants
CPT/HCPCS: 80053; 83690; 84484; 85025; 85610; 93005; 96360; 99284

== ENCOUNTER 2021-02-15 08:52 | Outpatient (CLI) | payer MEDICARE ==
--- NOTE | 2021-02-15 17:02 | Nuclear Medicine Report ---
PROCEDURE: Bone Whole Body INDICATIONS: CHRONIC LOW BACK PAIN WITH BROKEN FUSION RODS RADIOPHARMACEUTICAL: 26.5 mCi Tc-99m MDP IV. TECHNIQUE: Delayed whole-body scintigrams were obtained approximately 3-4 hours after intravenous injection of r adiotracer. Anterior and posterior views were acquired from vertex to feet. Additional left and rig ht oblique views of the skull and cervical spine were obtained. COMPARISON: None available. FINDINGS: Foci of mildly increased uptake are noted in the thoracic and lumbar spine, correlating wi th radiographic finding of degenerative and postsurgical changes. Early metastasis could be obscured. Mild increased uptake seen in the posterior right upper ribs, most likely related to old trauma. Foc i of increased uptake in shoulders, hips, knees are compatible with degenerative/arthritic changes. U ptake in the right antecubital fossa is compatible with injection site. IMPRESSION: No scintigraphic findings for osseous metastasis. Reviewed by: Farnaz Junior MD on 02/15/2021 5:00 PM PDT Approved by: Farnaz Junior MD on 02/15/2021 5:00 PM PDT Station ID: [id number]
== END 2021-02-15 08:53 | disposition home or self-care (01) ==
LOC: DI 08:52
PROVIDERS: ATTEND Family Medicine
DX: M54.5 Low back pain (principal); G89.29 Other chronic pain
CPT/HCPCS: 78306

== ENCOUNTER 2022-01-19 08:07 | Outpatient (CLI) | payer MEDICARE | END 2022-01-19 08:08 | disposition left against medical advice (07) | LOC: EMS 08:07 | DX: M54.50 Low back pain, unspecified (principal) ==

== ENCOUNTER 2022-11-05 22:11 | Emergency (ER) | payer MEDICARE ==
[2022-11-05] MEDS: SODIUM CHLORIDE 0.9% 1,000 ML IV STA (22:45)
[2022-11-05 22:48] LABS: BASOPHILS # (AUTO) 0.1 10^3/uL (0.0-0.1); BASOPHILS % (AUTO) 0.3 %; EOSINOPHILS # (AUTO) 0.2 10^3/uL (0.0-0.7); EOSINOPHILS % (AUTO) 1.1 %; HCT - HEMATOCRIT 43.5 % (42.0-52.0); HGB - HEMOGLOBIN 13.8 g/dL (14.0-18.0); LYMPHOCYTES # (AUTO) 2.2 10^3/uL (1.5-3.5); LYMPHOCYTES % (AUTO) 12.9 %; MEAN CORPUSCULAR HEMOGLOBIN 30.1 pg (27.0-31.0); MEAN CORPUSCULAR HGB CONC 31.7 g/dL (32.0-36.0); MEAN CORPUSCULAR VOLUME 94.8 fL (80.0-94.0); MEAN PLATELET VOLUME 9.4 fL (7.4-11.4); MONOCYTES # (AUTO) 1.1 10^3/uL (0.0-1.0); MONOCYTES % (AUTO) 6.5 %; NEUTROPHILS # (AUTO) 13.5 10^3/uL (1.5-6.6); NEUTROPHILS % (AUTO) 78.7 %; PLT - PLATELET COUNT 198 10^3/uL (130-450); RED BLOOD COUNT 4.59 10^6/uL (4.70-6.10); RED CELL DISTRIBUTION WIDTH 13.6 % (12.0-15.0); WHITE BLOOD COUNT 17.2 x10^3/uL (4.8-10.8)
--- NOTE | 2022-11-05 23:13 | ED Physician Documentation ---
PD HPI ABD PAIN - Stated complaint Stated Complaint: CONSTIPATION - Chief complaint Chief Complaint: Abd Pain - History obtained from History obtained from: Patient, Family - Additional information Additional information: Patient complains of feeling constipated.Complains of sensation abdominal distention, urge to defecate, with small, intermittent liquid output per rectum. He is already on a bowel regimen for chronic constipation. Over the past few days, he has increased the frequency of dosing of some of his medications and takes for constipation such as MiraLAX as well as frequency of enemas. He does not feel he has had adequate stool output despite these increased frequency of agents for constipation. He denies anterior abdominal pain; his only pain complaint is that he is having rectal pain, particular when he tries to have a bowel movement.He notes some right hip pain, although this seems incidental, as he only began to have that discomfort as he has been lying in the ER stretcher waiting evaluation. Patient takes warfarin due to history of DVT/PE. Family member (in ER at patient's bedside) says that there was a single episode of bright red blood per rectum earlier today. Review of Systems GI: reports: Constipation. denies: Abdominal Pain, Nausea, Vomiting, Diarrhea PD PAST MEDICAL HISTORY - Past Medical History Past Medical History: Yes Cardiovascular: Deep vein thrombosis, Pulmonary embolism Respiratory: None Neuro: Parkinson's Endocrine/Autoimmune: None GI: Chronic constipation, Hemorrhoids : Benign prostate hypertrophy HEENT: Chronic vision loss Psych: None Musculoskeletal: Osteoarthritis, Chronic back pain Derm: None - Past Surgical History Past Surgical History: No General: Colonoscopy Ortho: Spine surgery - Present Medications Home Medications: Ambulatory Orders Medication Instructions Recorded Confirmed Warfarin Sodium [Coumadin] 2.5 mg PO SUTUWETHSA 04/15/13 08/30/20 clonazePAM [Clonazepam] 1 mg PO QPM PRN 04/15/13 08/30/20 Carbidopa/Levodopa 25/250 [Sinemet 1 each PO 5XD 10/01/13 08/30/20 25 mg/250 mg] Tamsulosin [Flomax] 0.4 mg PO QPM 10/01/13 08/30/20 polyethylene glycoL 3350 [Miralax] 17 gm PO DAILY PRN 05/30/17 08/30/20 Warfarin Sodium 5 mg PO MOFR 01/06/20 08/30/20 levETIRAcetam [Levetiracetam] 1,500 mg PO BID 01/06/20 08/30/20 Albuterol Sulf [Ventolin Hfa 1 - 2 puffs INH Q4HR PRN #1 inhaler 06/13/20 08/30/20 Inhaler] Baclofen 5 mg PO TID 08/30/20 08/30/20 Docusate Sodium [Dulcolax Stool 100 mg PO BID 08/30/20 08/30/20 Softener] Folic Acid/Vit B Complex and C 400 mcg PO DAILY 08/30/20 08/30/20 [B-Complex with Vit C Tablet] Midodrine [ProAmatine] 2.5 mg PO TID 08/30/20 08/30/20 Pregabalin [Lyrica] 225 mg PO BID 08/30/20 08/30/20 Sodium/Potassium/Mag Sulfates 354 ml PO ONCE #1 kit 11/06/22 [Suprep Bowel Prep Kit] - Allergies Allergies/Adverse Reactions: Allergies Allergy/AdvReac Type Severity Reaction Status Date / Time No Known Drug Allergies Allergy Verified 11/05/22 22:37 - Social History Does the pt smoke?: No Smoking Status: Never smoker Does the pt drink ETOH?: No Does the pt have substance abuse?: No - Immunizations Immunizations are current?: Yes - POLST Patient has POLST: No PD ED PE NORMAL - Vitals Vital signs reviewed: Yes - General General: Alert and oriented X 3, No acute distress, Well developed/nourished - Abdomen Abdomen: Normal bowel sounds, Soft, Non tender, Non distended Results - Vitals Vitals: Vital Signs - 24 hr 11/05/22 11/05/22 11/06/22 22:17 22:54 00:29 Temperature 36.2 C L Heart Rate 77 87 66 Respiratory 16 15 15 Rate Blood Pressure 78/55 L 128/80 136/90 H O2 Saturation 97 96 96 11/06/22 02:19 Temperature Heart Rate 68 Respiratory 11 L Rate Blood Pressure 152/95 H O2 Saturation 95 Oxygen O2 Source Room air - Labs Labs: Laboratory Tests 11/05/22 11/05/22 11/05/22 22:43 22:43 22:43 WBC 17.2 H RBC 4.59 L Hgb 13.8 L Hct 43.5 MCV 94.8 H MCH 30.1 MCHC 31.7 L RDW 13.6 Plt Count 198 MPV 9.4 Neut # (Auto) 13.5 H Lymph # (Auto) 2.2 [place] # (Auto) 1.1 H Eos # (Auto) 0.2 Baso # (Auto) 0.1 Absolute Nucleated RBC 0.00 Nucleated RBC % 0.0 PT 42.8 H INR 4.2 H APTT 51.1 H Sodium 140 Potassium 4.2 Chloride 101 Carbon Dioxide 30 Anion Gap 9.0 BUN 30 H Creatinine 1.1 Estimated GFR (MDRD) 66 L Glucose 89 Calcium 8.9 Total Bilirubin 0.4 AST 26 ALT < 10 L Alkaline Phosphatase 67 Total Protein 7.0 Albumin 3.8 Globulin 3.2 Albumin/Globulin Ratio 1.2 Lipase 27 - Rads (name of study) acute abdominal xrays Relevant Findings:: Prelim report reviewed, See rad report PD Medical Decision Making - ED course Complexity details: reviewed results, re-evaluated patient, considered differential, d/w patient ED course: Leukocytosis is noted (17.2 white blood cell count). His INR is mildly supratherapeutic (4.2). I was able to manually disimpact a moderate amount of brown, firm stool. Subsequent to this, and acute abdominal series (x-rays) was undertaken; ra diologist notes "scattered air-fluid levels in the abdomen are nonspecific. The differential includes a gastroenteritis, ileus, or obstruction". Reviewed these x-rays and the air-fluid levels are only clearly demonstrated on one of the 4 views, and their location is most consistent with gas in the large bowel. I do not appreciate any small bowel obstructive pattern. I do appreciate a moderate to large amount of stool throughout the colon. I discussed these results with patient and his spouse (in the ER at patient's bedside). Patient is not in any apparent distress, and his abdominal exam is benign on initial evaluation as well as reevaluation prior to discharge. At this time, there would be low likelihood of CT providing specific diagnosis and/or changing management. I doubt that there is a small bowel obstruction based on the amount of stool in the colon and in the rectum, the lack of nausea/vomiting, lack of abdominal tenderness. Return precautions were reviewed with the patient and his spouse. He is given a dose of lactulose to take as soon as he gets home, and I electronically submitted a prescription for a bowel prep to his pharmacy of choice. Prior to discharge, I attempted to further manually disimpact patient, but I only encountered soft stool at my fingertip Departure - Departure Disposition: 01 Home, Self Care Clinical Impression: Constipation Qualifiers: Constipation type: unspecified constipation type Qualified Code(s): K59.00 - Constipation, unspecified Instructions: ED Constipation Follow-Up: Eligio Puga MD [Primary Care Provider] - Prescriptions: Sodium/Potassium/Mag Sulfates [Suprep Bowel Prep Kit] 354 ml PO ONCE #1 kit Comments: You are being given a dose of lactulose to take orally as soon as you get home.This medication sometimes helps alleviate constipation. As we discussed, I am electronically submitting a prescription for a bowel prep to the [facility] in [place]. There will be instructions included with the bowel prep kit. Of course, this is not being prescribed in preparation for colonoscopy, but rather to treat your constipation. After you start the bowel prep, I would have you stop your MiraLAX. Once you have completed the bowel prep, you can resume the MiraLAX. Concerning signs/symptoms that would indicate the need to return to the emergency department would be increasing pain, in particular in the anterior (front) of the abdomen, vomiting, fever (100.4 or higher). I recommend you contact your primary care provider this morning when their office opens to arrange for next available appointment. Even if the prescribed medication (bowel prep) alleviates your constipation, it sounds like you should revisit with your primary care provider regarding your bowel regimen (might need some adjustment, but this is at the discretion of your primary care provider). Discharge Date/Time: 11/06/22 02:21
[2022-11-05 23:31] LABS: ALBUMIN 3.8 g/dL (3.2-5.5); ALBUMIN/GLOBULIN RATIO 1.2 (1.0-2.2); ALKALINE PHOSPHATASE 67 IU/L (42-121); ALT ALANINE AMINOTRANSFERASE < 10 IU/L (10-60); AST ASPARTATE AMINOTRANSFERASE 26 IU/L (10-42); BILIRUBIN,TOTAL 0.4 mg/dL (0.2-1.0); BUN - BLOOD UREA NITROGEN 30 mg/dL (6-20); CALCIUM 8.9 mg/dL (8.5-10.3); CARBON DIOXIDE - CO2 30 mmol/L (21-32); CHLORIDE 101 mmol/L (101-111); CREATININE 1.1 mg/dL (0.6-1.2); GFR - MDRD 66 (>89); GLUCOSE 89 mg/dL (70-100); LIPASE 27 U/L (22-51); POTASSIUM 4.2 mmol/L (3.5-5.0); SODIUM 140 mmol/L (135-145)
[2022-11-05 23:36] LABS: INR 4.2 (0.8-1.2); PT - PROTHROMBIN TIME 42.8 secs (9.9-12.6)
[2022-11-05 23:43] LABS: PARTIAL THROMBOPLASTIN TIME 51.1 secs (24.9-33.3)
[2022-11-06] MEDS: GLYCERIN ADULT SUPP PR STA (00:34)
[2022-11-06] MEDS: traMADol 50 MG TABLET PO STA (00:35)
[2022-11-06] MEDS: CARBIDOPA/LEVODOPA 25 MG/100 MG TABLET PO STA (00:35)
--- NOTE | 2022-11-06 00:44 | XRAY Report ---
PROCEDURE: Abdomen Acute INDICATIONS: abdominal pain TECHNIQUE: One view chest and two views of the abdomen were acquired. COMPARISON: Chest x-ray 08/30/2020 FINDINGS: Surgical changes and devices: Extensive postsurgical changes are demonstrated status post posterior f ixation in the thoracolumbar spine and the bilateral sacroiliac joints. Chest: Lungs are clear. Heart size is normal. No pleural effusions. No pneumoperitoneum. Abdomen: Bowel gas pattern demonstrates a few scattered air-fluid levels within the small large jane l. No abnormal gaseous distention of small or large bowel loops. No suspicious calcifications. Bones: No suspicious bony lesions. IMPRESSION: 1. Scattered air-fluid levels in the abdomen are nonspecific. The differential includes a gastroenter itis, ileus, or obstruction. Reviewed by: Jewel Pappas MD on 11/06/2022 12:42 AM PST Approved by: Jewel Pappas MD on 11/06/2022 12:42 AM PST Station ID: [id number]
[2022-11-06] MEDS: LACTULOSE 10 GM /15 ML UDC PO STA (02:19)
[2022-11-06 02:21] VITALS: BP 152/95
== END 2022-11-06 02:21 | disposition home or self-care (01) ==
LOC: ED 22:11
DX: K59.00 Constipation, unspecified (principal); G20 Parkinson's disease; Z86.718 Personal history of other venous thrombosis and embolism; Z86.711 Personal history of pulmonary embolism; Z79.01 Long term (current) use of anticoagulants; Z79.899 Other long term (current) drug therapy
CPT/HCPCS: 36415; 74022; 80053; 83690; 85025; 85610; 85730; 99284; A9270

== ENCOUNTER 2023-08-09 08:44 | Outpatient (CLI) | payer MEDICARE | END 2023-08-09 23:59 | disposition left against medical advice (07) | LOC: EMS 08:44 | DX: R55 Syncope and collapse (principal) ==